=== PATIENT | male | born 1955 | race Hispanic/Latino ===

== ENCOUNTER 2020-09-20 04:55 | Inpatient (IN) | payer BC ==
[2020-09-20 05:33] LABS: #Basophils 0.1 thou/uL (0.0-0.2); #Lymphocytes 1.6 thou/uL (1.20-3.40); #Monocytes 0.5 thou/uL (0.11-0.59); #Neutrophils 5.9 thou/uL (1.40-6.50); %Basophils 0.8 % (0.0-1.0); %Eosinophils 0.6 % (0.0-10.0); %Lymphocytes 19.7 % (21.0-51.0); %Monocytes 5.8 % (0.0-10.0); %Neutrophils 73.2 % (42.0-75.0); Hemoglobin 11.2 g/dL (14.0-18.0); Mean Corpuscular HGB CONC 32.3 g/dL (32.0-36.0); Mean Corpuscular Hemoglobin 28.8 pg (27.0-31.0); Mean Platelet Volume 8.6 fL (7.4-10.4); Platelet Count 247 thou/uL (130-400); RBC Distribution Width 13.9 % (11.5-14.5); Red Blood Cell (RBC) Count 3.88 mill/uL (4.70-6.10); White Blood Cell (WBC) Count 8.1 thou/uL (4.8-10.8)
[2020-09-20 05:55] LABS: ALT (SGPT) 50 U/L (8-55); AST (SGOT) 32 U/L (5-34); Albumin 4.1 g/dL (3.4-4.8); Alkaline Phosphatase 73 U/L (40-110); Anion Gap 14 mmol/L (10-20); BUN (Urea Nitrogen) 22 mg/dL (8.4-25.7); Bilirubin, Total 0.9 mg/dL (0.2-1.2); Calc. Creatinine Clearance 0 mL/min (70-130); Calcium 9.1 mg/dL (7.8-10.44); Carbon Dioxide 24 mmol/L (23-31); Chloride 107 mmol/L (98-107); Globulin 2.9 g/dL (2.4-3.5); Glucose 191 mg/dL (80-115); Potassium 4.3 mmol/L (3.5-5.1); Sodium 141 mmol/L (136-145)
[2020-09-20 06:21] LABS: CKMB 7.1 ng/mL (0-6.6)
[2020-09-20] MEDS ORDERED: Aspirin 325 MG TAB ONE (06:25)
[2020-09-20] MEDS ORDERED: Furosemide 40 MG/4 ML VIAL ONE (06:36)
--- NOTE | 2020-09-20 08:18 | RAD ---
SINGLE VIEW CHEST: Date: 09/20/2020 COMPARISON: None. HISTORY: Dry cough and shortness of breath for 2 week. FINDINGS: Single view of the chest shows an enlarged cardiomediastinal silhouette. Bilateral perihilar fullness is seen. Increased interstitial lung markings are present. There are questionable superimposed air s pace opacities in the left hilar region. No pleural effusion is seen. Degenerative changes are seen i n the spine. IMPRESSION: 1. Possible left perihilar infiltrate. 2. Cardiomegaly and pulmonary vascular congestion. POS: TIFFANY
--- NOTE | 2020-09-20 09:37 | PDOC.HHP ---
Hospitalist HPI - History of Present Illness History of Present Illness: ADMISSION DATE: 09/20/2020 TIME OF ASSESSMENT: 08 50 PRIMARY CARE PHYSICIAN: Chon Sahu CHIEF COMPLAINT: Shortness of breath HPI: Patient is a 65-year-old male past medical history significant for diabetes mellitus type 2. He presented to the ER today for increasing shortness of breath. He states that 2 weeks ago, around , he began to feel short of breath. He went to his physician the Friday after and was diagnosed with bronchitis. The following Friday which was 2 days ago he returned to his physician and was given an inhaler, Tessalon Perles, an antibiotic, and an injection which he does not know if it was an antibiotic or steroid. He states he has been compliant with his medications. He also states he has been getting more tired as this goes on and is having to prop himself up at night to sleep or sleep in his recliner to breathe better. Patient also endorses ankle swelling for the past 2 days and a dry cough. He denies chest pain, fevers, contact with sick persons, palpitations. ED COURSE: Vital Signs: Blood pressure 124/82, pulse 91, respiratory 22, temp 98.0 oral, 96% on room air Today in the ER the patient had EKG, chest x-ray, and lab work completed. He was administered lasix 40 mg IV and Aspirin 325 mg PO. PAST MEDICAL HISTORY: DM II PAST SURGICAL HISTORY: tonsillectomy, rotator cuff surgery bilaterally SOCIAL HISTORY: Patient lives at home with his . He denies alcohol, drug, or tobacco use. FAMILY HISTORY: Grandmother had history of diabetes. ALLERGIES: No known drug allergies CURRENT MEDICATIONS: Metformin and glyburide Hospitalist ROS - Review of Systems ENT: reports: other (congestion in throat) Cardiovascular: reports: orthopnea, edema All other systems reviewed; all pertinent +/- noted in HPI/Subj - Exam General Appearance: NAD, awake alert Eye: PERRL ENT: normocephalic atraumatic Heart: RRR, no murmur, no gallops, no rubs, normal peripheral pulses Respiratory: no ronchi, rales (soft in bases) Gastrointestinal: soft, non-tender, non-distended, normal bowel sounds Extremities: 1+ LE edema Musculoskeletal: normal tone, normal strength, no muscle wasting Psychiatric: normal affect, normal behavior, A&O x 3 Hospitalist Results - Labs Result Diagrams: 09/20/20 05:15 09/20/20 05:15 Lab results: WBC 8.1 thou/uL (4.8-10.8) 09/20/20 05:15 Hgb 11.2 g/dL (14.0-18.0) L 09/20/20 05:15 Hct 34.6 % (42.0-52.0) L 09/20/20 05:15 MCV 89.0 fL (78.0-98.0) 09/20/20 05:15 Plt Count 247 thou/uL (130-400) 09/20/20 05:15 Neutrophils % 73.2 % (42.0-75.0) 09/20/20 05:15 Sodium 141 mmol/L (136-145) 09/20/20 05:15 Potassium 4.3 mmol/L (3.5-5.1) 09/20/20 05:15 Chloride 107 mmol/L (98-107) 09/20/20 05:15 Carbon Dioxide 24 mmol/L (23-31) 09/20/20 05:15 BUN 22 mg/dL (8.4-25.7) 09/20/20 05:15 Creatinine 0.89 mg/dL (0.7-1.3) 09/20/20 05:15 Glucose 191 mg/dL (80-115) H 09/20/20 05:15 Calcium 9.1 mg/dL (7.8-10.44) 09/20/20 05:15 Total Bilirubin 0.9 mg/dL (0.2-1.2) 09/20/20 05:15 AST 32 U/L (5-34) 09/20/20 05:15 ALT 50 U/L (8-55) 09/20/20 05:15 Alkaline Phosphatase 73 U/L (40-110) 09/20/20 05:15 CK-MB (CK-2) 7.1 ng/mL (0-6.6) H* 09/20/20 05:15 Troponin I 0.055 ng/mL (< 0.028) H 09/20/20 05:15 B-Natriuretic Peptide 2196.6 pg/mL (0-100) H 09/20/20 05:15 Serum Total Protein 7.0 g/dL (5.8-8.1) 09/20/20 05:15 Albumin 4.1 g/dL (3.4-4.8) 09/20/20 05:15 - EKG Interpretation EKG: Sinus rhythm, LVH 98 bpm - Radiology Interpretation Chest x-ray Status: image reviewed by me, report reviewed by me Additional Comment: FINDINGS: Single view of the chest shows an enlarged cardiomediastinal silhouette. Bilateral perihilar fullnessis seen. Increased interstitial lung markings are present. There are questionable superimposed air space opacities in the left hilar region. No pleural effusion is seen. Degenerative changes are seen in the spine. IMPRESSION: 1. Possible left perihilar infiltrate. 2. Cardiomegaly and pulmonary vascular congestion. Hospitalist H&P A/P - Plan Plan: New onset CHF exacerbation Pending cardiology consult Echo ordered Continue IV Lasixreceived first dose in the ER Strict I's and O's Start aspirinreceived first dose in ER Heart failure clinic referral prior to discharge TSH, mag check Elevated troponins Denies chest pain, possibly elevated due to demand from heart failure Continue to trend Monitor on telemetry Diabetes mellitus type 2 Monitor Accu-Cheks AC at bedtime Mild sliding scale insulin Restart home medications VTE prophylaxis in place with SCDs CODE STATUS: Full Surrogate decision-maker is his , Teresita
[2020-09-20] MEDS ORDERED: Dextrose 5% in Water 1,000 ML IV PRN (10:01)
[2020-09-20] MEDS ORDERED: Dextrose 50% Abboject 50 ML SYRINGE SLOW IVP PRN (10:01)
[2020-09-20 10:05] LABS: Troponin I 0.057 ng/mL (< 0.028)
[2020-09-20 12:17] LABS: Troponin I 0.052 ng/mL (< 0.028)
[2020-09-20] MEDS: Furosemide 20 MG/2 ML VIAL SLOW IVP SCH (16:00)
[2020-09-20] MEDS ORDERED: Furosemide 20 MG/2 ML VIAL SLOW IVP SCH (20:00)
[2020-09-20] MEDS ORDERED: Potassium Chloride 20 MEQ TAB PO SCH (20:00)
--- NOTE | 2020-09-21 00:04 | CON ---
DATE OF CONSULTATION: 09/20/2020 REASON FOR CONSULTATION: Congestive heart failure. HISTORY OF PRESENT ILLNESS: Mr. Ratliff is a 65-year-old man, said he really has been breathing well since about , but he had noticed some wheezing. He received some inhaled bronchodilators, did not seem to help much. His symptoms have gradually worsened. He also noted some swelling of his lower extremities. He really has been very short of breath the last 2 days. Finally came to the emergency room after being urged to do so by his family member. Eventually he came to the hospital, found to be in florid pulmonary edema. He never had any chest pain or pressure. PAST MEDICAL HISTORY: He has history of diabetes for over 20 years, he thinks maybe closer to 30. Smoking, he quit about 8 years ago. MEDICATIONS: At home; 1. Metformin. 2. Meloxicam. 3. Jardiance. 4. Glipizide. ALLERGIES: NONE KNOWN. SOCIAL HISTORY: As mentioned, quit smoking 8 years ago. He has a supportive family. Lives at home. REVIEW OF SYSTEMS: CONSTITUTIONAL: Positive for generalized weakness. VISION: No changes. HEARING: No changes. PULMONARY: Shortness of breath. GASTROINTESTINAL: No nausea, vomiting, or diarrhea. SKIN: No rashes. NEUROLOGIC: No unilateral weakness or numbness. PSYCHIATRIC: No unusual depression or anxiety. PHYSICAL EXAMINATION: GENERAL: This is a pleasant gentleman. He still has increased respiratory rate, is short of breath, is moving around the bed. VITAL SIGNS: Blood pressure 114/54, pulse in the 80s, it is regular. LUNGS: Bibasilar rales. CARDIAC: Normal S1, normal S2. I do not hear a murmur, rub, or gallop. ABDOMEN: Soft and nontender. EXTREMITIES: Warm, dry. No clubbing or cyanosis. There is moderate edema. PULSES: He has good femoral pulse on the right. Good popliteal pulse on the right. Diminished pulses in the foot on the right. Decreased femoral pulse on the left. Decreased popliteal pulse on the left. Decreased pedal pulses on the left. PERTINENT LABORATORIES: Potassium was 4.3. Troponin indeterminate at 0.052. BNP 2196. Chest x-ray is cardiomegaly with pulmonary vascular congestion and heart failure. EKG is normal sinus rhythm, tachycardiac for rest at a rate of 98. There is a left axis deviation, possible old inferior infarct. There is an incomplete right bundle-branch block. I suspect it maybe a posterior infarct, some nonspecific ST and T-wave changes. ASSESSMENT: 1. Congestive heart failure, probably systolic, acute on chronic. 2. Abnormal EKG with left anterior fascicular block and possible old inferior infarct. 3. Probable underlying coronary artery disease. 4. Long-standing diabetes. PLAN: 1. Continue diuresis. 2. Add spironolactone. 3. Probably add low-dose losartan tomorrow and if he tolerates that, may change to Entresto. 4. Ultimately will need cardiac catheterization. 5. Echocardiogram pending. Suspect he has severely depressed left ventricular function. Job ID: [id number]
[2020-09-21 04:57] LABS: #Basophils 0.1 thou/uL (0.0-0.2); #Eosinphils 0.1 thou/uL (0.0-0.7); #Lymphocytes 1.9 thou/uL (1.20-3.40); #Monocytes 0.7 thou/uL (0.11-0.59); #Neutrophils 4.9 thou/uL (1.40-6.50); %Eosinophils 1.6 % (0.0-10.0); %Lymphocytes 24.6 % (21.0-51.0); %Monocytes 8.6 % (0.0-10.0); %Neutrophils 64.2 % (42.0-75.0); Mean Corpuscular HGB CONC 32.3 g/dL (32.0-36.0); Mean Corpuscular Hemoglobin 28.8 pg (27.0-31.0); Mean Corpuscular Volume 89.1 fL (78.0-98.0); Mean Platelet Volume 8.3 fL (7.4-10.4); Platelet Count 245 thou/uL (130-400); RBC Distribution Width 13.8 % (11.5-14.5); Red Blood Cell (RBC) Count 3.83 mill/uL (4.70-6.10); White Blood Cell (WBC) Count 7.6 thou/uL (4.8-10.8)
[2020-09-21 05:28] LABS: Anion Gap 14 mmol/L (10-20); BUN (Urea Nitrogen) 18 mg/dL (8.4-25.7); Calc. Creatinine Clearance 107 mL/min (70-130); Calcium 8.8 mg/dL (7.8-10.44); Carbon Dioxide 26 mmol/L (23-31); Cardiac Risk 3.1 (Less than 4.5); Chloride 105 mmol/L (98-107); Cholesterol 131 mg/dl (< 200 Desired); Glucose 148 mg/dL (80-115); HDL Cholesterol 42 mg/dL (>60 Neg Risk); LDL Cholesterol, Calculated 65 mg/dL; Potassium 4.1 mmol/L (3.5-5.1); Sodium 141 mmol/L (136-145); Triglycerides 119 mg/dL (Less than 150)
[2020-09-21] MEDS: Furosemide 20 MG/2 ML VIAL SLOW IVP SCH ×2 (06:23→14:01)
[2020-09-21] MEDS: Spironolactone 25 MG TAB PO SCH (08:51)
[2020-09-21] MEDS: Aspirin Chewable 81 MG TAB PO SCH (08:52)
[2020-09-21] MEDS ORDERED: Ivabradine 5 MG TAB PO SCH (09:00)
--- NOTE | 2020-09-21 10:22 | PDOC.HOSPP ---
- Subjective Encounter Date: 09/21/20 Encounter Time: 09:10 Subjective: Patient seen this morning for follow-up on new onset CHF exacerbation. Patient states he is feeling much better today and able to lie down some and breathe well. Patient longer tachypneic as he was yesterday. States he is still having good output. Awaiting echo results currently. Cardiology still following with patient. Chart and medications reviewed at this time. - Objective Vital Signs & Weight: Vital Signs (12 hours) Temp Pulse Resp BP Pulse Ox 09/21/20 07:34 98.5 F 75 24 H 122/72 97 09/21/20 04:00 97.8 F 80 19 120/73 97 09/20/20 23:20 82 15 103/65 98 Weight Weight 167 lb 6.4 oz I&O: 09/20/20 09/21/20 09/22/20 06:59 06:59 06:59 Intake Total 320 Output Total 1500 Balance -1180 Result Diagrams: 09/21/20 04:27 09/21/20 04:27 Additional Labs: Accuchecks 09/21/20 09/20/20 09/20/20 05:41 20:57 16:58 POC Glucose 134 H 155 H 120 H 09/20/20 11:09 POC Glucose 86 EKG Reviewed by me: Yes Hospitalist ROS - Medication Medications: Active Medications Generic Name Dose Route Start Last Admin Trade Name Freq PRN Reason Stop Dose Admin Aspirin 81 mg 09/21/20 09:00 09/21/20 08:52 Aspirin Chewable 81 Mg Tab PO 81 mg DAILY KELLE Administration Furosemide 20 mg 09/20/20 14:00 09/21/20 06:23 Furosemide 20 Mg/2 Ml Vial SLOW IVP 20 mg 0600,1400 KELLE Administration Ivabradine 5 mg 09/21/20 09:00 09/21/20 09:55 Ivabradine 5 Mg Tab PO 5 mg BID KELLE Administration Spironolactone 25 mg 09/21/20 08:00 09/21/20 08:51 Spironolactone 25 Mg Tab PO 25 mg QAM-WM KELLE Administration - Exam General Appearance: NAD, awake alert ENT: normocephalic atraumatic Heart: RRR, no murmur, no gallops, no rubs Respiratory: CTAB, no wheezes, normal chest expansion, no tachypnea Gastrointestinal: soft, non-tender, non-distended, normal bowel sounds, no palpable masses Neurological: no focal deficits Hosp A/P - Plan New onset CHF exacerbation Echo completed this am- awaiting results Continue IV Lasixreceived extra dose last night Strict I's and O's Continue aspirin Heart failure clinic referral prior to discharge Elevated troponins Denies chest pain, possibly elevated due to demand from heart failure Continue to trend Monitor on telemetry Diabetes mellitus type 2 Monitor Accu-Cheks AC at bedtime Mild sliding scale insulin
[2020-09-21] MEDS ORDERED: FLU VACC QS2020-21(6MOS UP)/PF 60 MCG/0.5 ML SYRINGE IM ONE (10:45)
--- NOTE | 2020-09-21 13:21 | PRG ---
DATE OF SERVICE: 09/21/2020 SUBJECTIVE: Mr. Ratliff is breathing better. He is feeling better. He has had a good diuresis all of his urine was collected. He said he had a full urinal about 800 mL, it apparently did not get recorded, but he is feeling much better. OBJECTIVE: VITAL SIGNS: Blood pressure is 108/63, pulse is 80. LUNGS: Clear now. CARDIAC: Normal S1, normal S2. ABDOMEN: Soft, nontender. EXTREMITIES: There is no edema. ASSESSMENT: 1. Congestive heart failure, systolic, acute on chronic, improved. 2. Echocardiogram shows ejection fraction 10% to 15% and inferior akinesis, looks like severe coronary artery disease in all likelihood. PLAN: 1. Add low-dose losartan tonight. If he tolerates that, consideration for starting Entresto. 2. Probably change him to p.o. diuretics tomorrow. 3. Probably increase spironolactone to 25 mg twice a day tomorrow. 4. Ultimately, start low-dose carvedilol. The patient has severely depressed left ventricular function. Tentatively planned catheterization on Friday. Job ID: [id number]
[2020-09-21] MEDS ORDERED: Losartan 25 MG TAB PO SCH (18:00)
[2020-09-22 04:36] LABS: #Basophils 0.1 thou/uL (0.0-0.2); #Eosinphils 0.2 thou/uL (0.0-0.7); #Lymphocytes 1.6 thou/uL (1.20-3.40); #Monocytes 0.5 thou/uL (0.11-0.59); #Neutrophils 3.5 thou/uL (1.40-6.50); %Lymphocytes 27.8 % (21.0-51.0); %Neutrophils 59.3 % (42.0-75.0); Mean Corpuscular HGB CONC 32.3 g/dL (32.0-36.0); Mean Corpuscular Hemoglobin 28.5 pg (27.0-31.0); Mean Corpuscular Volume 88.4 fL (78.0-98.0); Mean Platelet Volume 8.3 fL (7.4-10.4); Platelet Count 247 thou/uL (130-400); RBC Distribution Width 13.9 % (11.5-14.5); Red Blood Cell (RBC) Count 3.87 mill/uL (4.70-6.10); White Blood Cell (WBC) Count 5.9 thou/uL (4.8-10.8)
[2020-09-22 04:51] LABS: Anion Gap 12 mmol/L (10-20); BUN (Urea Nitrogen) 17 mg/dL (8.4-25.7); Calc. Creatinine Clearance 105 mL/min (70-130); Calcium 8.6 mg/dL (7.8-10.44); Carbon Dioxide 27 mmol/L (23-31); Chloride 105 mmol/L (98-107); Glucose 141 mg/dL (80-115); Potassium 4.1 mmol/L (3.5-5.1); Sodium 140 mmol/L (136-145)
[2020-09-22] MEDS: Furosemide 20 MG/2 ML VIAL SLOW IVP SCH (06:23)
[2020-09-22] MEDS: Aspirin Chewable 81 MG TAB PO SCH (08:39)
[2020-09-22] MEDS: Spironolactone 25 MG TAB PO SCH (08:39)
[2020-09-22] MEDS ORDERED: Communication Order-Pharmacy FS SCH (10:15)
--- NOTE | 2020-09-22 10:25 | PRG ---
DATE OF SERVICE: 09/22/2020 SUBJECTIVE: Mr. Ratliff is doing much better. He has no complaints. OBJECTIVE: VITAL SIGNS: His blood pressure is 109/56, pulse 75, it is regular. LUNGS: Clear. CARDIAC: Normal S1 and normal S2. ABDOMEN: Soft, nontender. EXTREMITIES: No edema. ASSESSMENT: 1. Severely depressed left ventricular function, congestive heart failure, acute on chronic, clinically improved. 2. Diabetes. 3. Tolerated losartan yesterday. PLAN: 1. Continue spironolactone. 2. Reduce diuretic therapy. 3. Add Entresto. 4. Add low-dose carvedilol tomorrow. 5. Discussed cardiac catheterization. Discussed risks including stroke, heart attack, iodine allergy, loss of blood supply to leg or kidney, stent thrombosis, stent restenosis. Discussed that he is at higher risk due to severe left ventricular dysfunction. The patient and daughter are in the room. They understand and wish to proceed. Also, we ordered LifeVest in view of ejection fraction being severely depressed at 10% to 15%. Job ID: [id number]
[2020-09-22] MEDS: Furosemide 20 MG TAB PO SCH (14:06)
--- NOTE | 2020-09-22 17:18 | PDOC.HOSPP ---
- Subjective Encounter Date: 09/22/20 Encounter Time: 10:00 Subjective: Patient seen for follow-up for CHF exacerbation. Denies chest pain. Reports shortness of breath is better. - Objective Vital Signs & Weight: Vital Signs (12 hours) Temp Pulse Pulse Pulse Resp BP BP 09/22/20 15:45 98.1 F 73 17 09/22/20 12:15 98.4 F 82 16 09/22/20 10:16 77 81 101/68 113/71 09/22/20 08:45 09/22/20 08:34 98.6 F 75 16 BP BP Pulse Ox Pulse Ox Pulse Ox 09/22/20 15:45 102/66 93 L 09/22/20 12:15 101/60 95 09/22/20 10:16 95 93 L 09/22/20 08:45 96 09/22/20 08:34 109/56 L 96 Weight Weight 163 lb I&O: 09/21/20 09/22/20 09/23/20 06:59 06:59 06:59 Intake Total 642 Output Total 1999 Balance -1358 Result Diagrams: 09/22/20 03:56 09/22/20 03:56 Additional Labs: Accuchecks 09/22/20 09/22/20 09/22/20 16:43 10:53 06:05 POC Glucose 164 H 137 H 143 H 09/21/20 09/21/20 19:53 18:19 POC Glucose 225 H 112 H Labs and MAR reviewed by me EKG Reviewed by me: Yes (Telemetry shows normal sinus rhythm) Hospitalist ROS - Review of Systems Respiratory: reports: SOB with excertion. denies: cough, shortness of breath, pleuritic pain, wheezing Cardiovascular: denies: chest pain, palpitations, orthopnea, paroxysmal noc. dyspnea, edema, light headedness - Medication Medications: Active Medications Generic Name Dose Route Start Last Admin Trade Name Freq PRN Reason Stop Dose Admin Aspirin 81 mg 09/21/20 09:00 09/22/20 08:39 Aspirin Chewable 81 Mg Tab PO 81 mg DAILY KELLE Administration Furosemide 20 mg 09/22/20 14:00 09/22/20 14:06 Furosemide 20 Mg Tab PO 20 mg 0900,1400 KELLE Administration Spironolactone 25 mg 09/21/20 08:00 09/22/20 08:39 Spironolactone 25 Mg Tab PO 25 mg QAM-WM [facility] Administration - Exam General Appearance: awake alert Eye: anicteric sclera ENT: moist mucosa Neck: supple Heart: RRR Respiratory: CTAB Gastrointestinal: soft, non-tender Skin: no rashes Psychiatric: normal affect, normal behavior Hosp A/P - Plan -Assessment/plan Acute on chronic systolic congestive heart failure, NYHA class III Continue IV furosemide. Continue Coreg 3.125 mg twice daily. Continue Entresto 24/26 mg twice daily. Continue spironolactone 25 mg daily. Strict I's and O's Elevated troponins Continue aspirin. Patient denies any chest pain. Patient for cath in 2 days. Diabetes mellitus type 2 Continue Accu-Cheks and insulin sliding scale.
[2020-09-22] MEDS: HumaLOG 300 UNITS/3 ML VIAL SC PRN (18:19)
[2020-09-23] MEDS: Aspirin Chewable 81 MG TAB PO SCH (08:50)
[2020-09-23] MEDS: Spironolactone 25 MG TAB PO SCH (08:50)
[2020-09-23] MEDS: Furosemide 20 MG TAB PO SCH ×2 (08:50→13:32)
[2020-09-23] MEDS: HumaLOG 300 UNITS/3 ML VIAL SC PRN ×2 (12:16→21:39)
--- NOTE | 2020-09-23 12:37 | PDOC.CPN ---
- Subjective Date: 09/23/20 Time: 09:45 Interval history: No overnight events, patient doing well today, walking in hallway with therapy with no cardiac complaints, he states that he walked further than yesterday and also feels better. He denies any chest pain or shortness of breath today. His d ursula is at his bedside. - Review of Systems General: denies: fever/chills, weight/appetite/sleep changes, night sweats, fatigue Respiratory: denies: cough, congestion, shortness of breath, exercise intolerance Cardiovascular: denies: chest pain, palpitation, edema, paroxysmal nocturnal dyspnea, orthopnea Gastrointestinal: denies: nausea, vomiting, diarrhea, constipation, abd pain, GI bleeding Musculoskeletal: denies: pain, tenderness, stiffness, swelling, arthritis/arthralgias Neurological: denies: numbness, syncope, seizure, weakness - Objective Allergies/Adverse Reactions: Allergies Allergy/AdvReac Type Severity Reaction Status Date / Time No Known Allergies Allergy Unverified 09/20/20 08:23 Visit Medications: Current Medications Aspirin (Aspirin Chewable 81 Mg Tab) 81 mg PO DAILY [facility] Last Admin: 09/23/20 08:50 Dose: 81 mg Documented by: Carvedilol (Carvedilol 3.125 Mg Tab) 3.125 mg PO BID-[facility] Dextrose/Water (Dextrose 50% Abboject 50 Ml Syringe) 25 gm SLOW IVP PRN PRN PRN Reason: Hypoglycemia Furosemide (Furosemide 20 Mg Tab) 20 mg PO 0900,1400 [facility] Last Admin: 09/23/20 08:50 Dose: 20 mg Documented by: Glucagon (Glucagon 1 Mg/Ml Vial) 1 mg IM PRN PRN PRN Reason: Hypoglycemia Dextrose/Water (D5w) 1,000 mls @ 0 mls/hr IV .Q0M PRN PRN Reason: Hypoglycemia Sodium Chloride (Normal Saline 0.9%) 1,000 mls @ 100 mls/hr IV .Q10H [facility] Insulin Human Lispro (Humalog 300 Units/3 Ml Vial) 0 units SC .MILD SLIDING SCALE PRN PRN Reason: Mild Correctional Scale Last Admin: 09/23/20 12:16 Dose: 2 unit Documented by: Insulin Human Lispro (Humalog 300 Units/3 Ml Vial) 0 units SC .BEDTIME SLIDING SC PRN PRN Reason: Bedtime Correctional Scale Miscellaneous Information (Communication Order-Pharmacy ) 0 each FS ONE [facility] Stop: 09/25/20 21:00 Sacubitril/Valsartan (Sacubitril 24mg/Valsartan 26mg Tab) 1 tab PO BID [facility] Last Admin: 09/23/20 08:50 Dose: 1 tab Documented by: Sodium Chloride (Flush - Normal Saline 10 Ml Syringe) 10 ml IVF Q12HR [facility] Last Admin: 09/23/20 08:50 Dose: 10 ml Documented by: Sodium Chloride (Flush - Normal Saline 10 Ml Syringe) 10 ml IVF PRN PRN PRN Reason: Saline Flush Spironolactone (Spironolactone 25 Mg Tab) 25 mg PO QAM-WM [facility] Last Admin: 09/23/20 08:50 Dose: 25 mg Documented by: Vital Signs & Weight: Vital Signs Temp Pulse Resp BP BP Pulse Ox 09/23/20 11:00 96.4 F L 94 18 100/67 95 09/23/20 09:00 98 09/23/20 08:50 97.9 F 84 16 118/72 98 09/23/20 04:00 97.7 F 82 18 122/79 92 L Weight 156 lb 4.8 oz - Quality Measures Condition: Heart Failure CV meds: Beta Devonte: Yes, CARLOS/ARB: Yes, ASA: Yes - Physical Exam General: alert & oriented x3, appears well, no apparent distress HEENT: mucus membranes moist Neck: supple neck, midline trachea, no JVD/HJR, no masses, no bruit Cardiac: regular rate and rhythm, no murmur Lungs: clear to auscultation, normal breath sounds, no wheeze, rales, rhonchi Neuro: cranial nerve 2-12 intact, grossly intact, motor function intact Abdomen: active bowel sounds, soft, non-tender Extremities: no cyanosis, no clubbing, no edema Skin: clear Musculoskeletal: normal range of motion, no pain, no fluid collection - Labs Result Diagrams: 09/22/20 03:56 09/22/20 03:56 Troponin/CKMB CK-MB (CK-2) 7.1 ng/mL (0-6.6) H* 09/20/20 05:15 Troponin I 0.052 ng/mL (< 0.028) H 09/20/20 11:33 - EKG Interpretation EKG: sinus rhythm - Assessment/Plan Assessment/Plan: Acute on chronic congestive heart failure: EF showed 10-15%, inferior akineses, moderate-severe mitral regurgitation, mild tricuspid regurgitation. Life vest ordered, plan for [facility] on Friday with Dr. Schulz. Patient diuresed 1350 mL yesterday, continue with Lasix and Spironolactone. Continue current dose of Entresto. No edema today. Pt. seen and eval. by me. I agree with the a/p by the [employer]. We have discussed the pt. and plan. óscar
[2020-09-23] MEDS: Carvedilol 3.125 MG TAB PO SCH (16:42)
--- NOTE | 2020-09-23 18:19 | PDOC.HOSPP ---
- Subjective Encounter Date: 09/23/20 Encounter Time: 18:18 Subjective: Patient seen for follow-up regarding CHF exacerbation. Reports shortness of breath is better. Reports tongue erythema but no itching. Reports erythema of lower back but no itching. - Objective Vital Signs & Weight: Vital Signs (12 hours) Temp Pulse Pulse Pulse Resp BP BP 09/23/20 12:47 88 92 112/70 112/72 09/23/20 11:00 96.4 F L 94 18 09/23/20 09:00 09/23/20 08:50 97.9 F 84 16 BP BP Pulse Ox Pulse Ox Pulse Ox 09/23/20 12:47 96 94 L 09/23/20 11:00 100/67 95 09/23/20 09:00 98 09/23/20 08:50 118/72 98 Weight Weight 156 lb 4.8 oz I&O: 09/22/20 09/23/20 09/24/20 06:59 06:59 06:59 Intake Total 642 1300 Output Total 1999 Balance -1358 1300 Result Diagrams: 09/22/20 03:56 09/22/20 03:56 Additional Labs: Accuchecks 09/23/20 09/23/20 09/23/20 16:03 11:33 05:48 POC Glucose 134 H 190 H 116 H 09/22/20 19:54 POC Glucose 193 H I reviewed patient's labs and MAR EKG Reviewed by me: Yes (Normal sinus rhythm on telemetry) Hospitalist ROS - Review of Systems ENT: reports: other (Tongue erythema) Cardiovascular: denies: chest pain, palpitations, orthopnea, paroxysmal noc. dyspnea, edema, light headedness Gastrointestinal: denies: nausea, vomiting, abdominal pain, diarrhea, constipation, melena, hematochezia Skin: reports: rash - Medication Medications: Active Medications Generic Name Dose Route Start Last Admin Trade Name Freq PRN Reason Stop Dose Admin Aspirin 81 mg 09/21/20 09:00 09/23/20 08:50 Aspirin Chewable 81 Mg Tab PO 81 mg DAILY KELLE Administration Carvedilol 3.125 mg 09/23/20 17:00 09/23/20 16:42 Carvedilol 3.125 Mg Tab PO 3.125 mg BID-WM KELLE Administration Furosemide 20 mg 09/22/20 14:00 09/23/20 13:32 Furosemide 20 Mg Tab PO 20 mg 0900,1400 KELLE Administration Insulin Human Lispro 0 units 09/20/20 10:01 09/23/20 12:16 Humalog 300 Units/3 Ml Vial SC 2 unit .MILD SLIDING SCALE PRN Administration Mild Correctional Scale Sacubitril/Valsartan 1 tab 09/22/20 21:00 09/23/20 08:50 Sacubitril 24mg/Valsartan 26mg Tab PO 1 tab BID KELLE Administration Sodium Chloride 10 ml 09/22/20 21:00 09/23/20 08:50 Flush - Normal Saline 10 Ml Syringe IVF 10 ml Q12HR KELLE Administration Spironolactone 25 mg 09/21/20 08:00 09/23/20 08:50 Spironolactone 25 Mg Tab PO 25 mg QAM-WM KELLE Administration - Exam General Appearance: awake alert Eye: anicteric sclera ENT: moist mucosa Neck: supple Heart: RRR Respiratory: CTAB Gastrointestinal: soft, non-tender Skin - other findings: Mild erythema over the lower back, nontender Psychiatric: normal affect Hosp A/P - Plan -Assessment/plan Acute on chronic systolic congestive heart failure, NYHA class III Patient is improving with e IV furosemide. Patient is currently on Coreg 3.125 mg twice daily. Patient is currently on Entresto 24/26 mg twice daily. And is currently on spironolactone 25 mg daily. Strict I's and O's Elevated troponins Continue aspirin. Patient denies any chest pain. Patient for cath in 2 days for cardiomyopathy. Diabetes mellitus type 2 Continue Accu-Cheks and insulin sliding scale. Patient is not hypoxic, no airway compromise. Lungs appear clear. If patient develops itching or worsens, can trial steroids and H2 blockers. It is unclear what caused the erythema of the lower back and erythema of the tongue. Tongue is not swollen.
[2020-09-24] MEDS: Spironolactone 25 MG TAB PO SCH (08:05)
[2020-09-24] MEDS: Aspirin Chewable 81 MG TAB PO SCH (08:05)
[2020-09-24] MEDS: Furosemide 20 MG TAB PO SCH ×2 (08:05→13:09)
[2020-09-24] MEDS: Carvedilol 3.125 MG TAB PO SCH ×2 (08:09→18:23)
[2020-09-24] MEDS: HumaLOG 300 UNITS/3 ML VIAL SC PRN (11:30)
--- NOTE | 2020-09-24 16:24 | PDOC.CPN ---
- Subjective Date: 09/24/20 Time: 11:00 Interval history: Patient had 7 beats of NSVT this a.m around 4:30, he states he got up to use the bathroom at that time, denies any chest pain or shortness of breath when episode occurred. States that he is feeling good today, has already walked in the [place] way this morning with no cardiac complaints. - Review of Systems General: denies: fever/chills, weight/appetite/sleep changes, night sweats, fatigue Respiratory: denies: cough, congestion, shortness of breath, exercise intolerance Cardiovascular: denies: chest pain, palpitation, edema, paroxysmal nocturnal dyspnea, orthopnea Gastrointestinal: denies: nausea, vomiting, diarrhea, constipation, abd pain, GI bleeding Musculoskeletal: denies: pain, tenderness, stiffness, swelling, arthritis/arthralgias Neurological: denies: numbness, syncope, seizure, weakness - Objective Allergies/Adverse Reactions: Allergies Allergy/AdvReac Type Severity Reaction Status Date / Time No Known Allergies Allergy Unverified 09/20/20 08:23 Visit Medications: Current Medications Aspirin (Aspirin Chewable 81 Mg Tab) 81 mg PO DAILY [facility] Last Admin: 09/24/20 08:05 Dose: 81 mg Documented by: Carvedilol (Carvedilol 3.125 Mg Tab) 3.125 mg PO BID-[facility] Last Admin: 09/24/20 08:09 Dose: Not Given Documented by: Dextrose/Water (Dextrose 50% Abboject 50 Ml Syringe) 25 gm SLOW IVP PRN PRN PRN Reason: Hypoglycemia Furosemide (Furosemide 20 Mg Tab) 20 mg PO 0900,1400 [facility] Last Admin: 09/24/20 13:09 Dose: 20 mg Documented by: Glucagon (Glucagon 1 Mg/Ml Vial) 1 mg IM PRN PRN PRN Reason: Hypoglycemia Dextrose/Water (D5w) 1,000 mls @ 0 mls/hr IV .Q0M PRN PRN Reason: Hypoglycemia Sodium Chloride (Normal Saline 0.9%) 1,000 mls @ 100 mls/hr IV .Q10H [facility] Insulin Human Lispro (Humalog 300 Units/3 Ml Vial) 0 units SC .MILD SLIDING SCALE PRN PRN Reason: Mild Correctional Scale Last Admin: 09/24/20 11:30 Dose: 2 unit Documented by: Insulin Human Lispro (Humalog 300 Units/3 Ml Vial) 0 units SC .BEDTIME SLIDING SC PRN PRN Reason: Bedtime Correctional Scale Last Admin: 09/23/20 21:39 Dose: 2 unit Documented by: Miscellaneous Information (Communication Order-Pharmacy ) 0 each FS ONE [facility] Stop: 09/25/20 21:00 Sacubitril/Valsartan (Sacubitril 24mg/Valsartan 26mg Tab) 1 tab PO BID [facility] Last Admin: 09/24/20 08:17 Dose: 1 tab Documented by: Sodium Chloride (Flush - Normal Saline 10 Ml Syringe) 10 ml IVF Q12HR [facility] Last Admin: 09/24/20 08:17 Dose: 10 ml Documented by: Sodium Chloride (Flush - Normal Saline 10 Ml Syringe) 10 ml IVF PRN PRN PRN Reason: Saline Flush Spironolactone (Spironolactone 25 Mg Tab) 25 mg PO QAM-WM [facility] Last Admin: 09/24/20 08:05 Dose: 25 mg Documented by: Vital Signs & Weight: Vital Signs Temp Pulse Pulse Pulse Resp BP BP 09/24/20 15:34 98.1 F 90 20 09/24/20 12:55 97.9 F 77 16 09/24/20 10:56 90 86 107/69 103/63 09/24/20 08:15 98.2 F 78 16 09/24/20 08:10 BP Pulse Ox Pulse Ox Pulse Ox 09/24/20 15:34 98/66 96 09/24/20 12:55 102/57 L 95 09/24/20 10:56 98 95 09/24/20 08:15 94/66 96 09/24/20 08:10 96 Weight 156 lb 6.4 oz - Quality Measures Condition: Heart Failure CV meds: Beta Devonte: Yes, CARLOS/ARB: Yes, ASA: Yes - Physical Exam General: alert & oriented x3 HEENT: mucus membranes moist Neck: no JVD/HJR Cardiac: regular rate and rhythm, no murmur, S1/S2 Lungs: clear to auscultation, normal breath sounds, no wheeze, rales, rhonchi Neuro: grossly intact, motor function intact, sensory function intact Abdomen: active bowel sounds, soft, non-tender Extremities: no cyanosis, no clubbing, no edema, 2+ Posterior Tibial, 2+ Dorsalis Pedus Skin: clear Musculoskeletal: normal range of motion - Labs Result Diagrams: 09/22/20 03:56 09/22/20 03:56 Troponin/CKMB CK-MB (CK-2) 7.1 ng/mL (0-6.6) H* 09/20/20 05:15 Troponin I 0.052 ng/mL (< 0.028) H 09/20/20 11:33 - EKG Interpretation EKG Method: Telemetry EKG: sinus rhythm - Assessment/Plan Assessment/Plan: Acute on chronic congestive heart failure: EF showed 10-15%, inferior akineses, moderate-severe mitral regurgitation, mild tricuspid regurgitation. Life vest ordered, plan for LHC on Friday with Dr. Schulz. Patient diuresed 465 mL today, continue with Lasix and Spironolactone. Continue current dose of Entresto. No edema today. Spoke with patient and family about pre and post heart catheterization and answered all questions by patient and family. His BP was low this morning, his morning dose of Coreg was held, will continue to monitor. Pt. seen and eval. by me. I agree with the A/P by the UTILIZATION ENGINEER. Chest clear. RRR. + murmur of MR. cantrell
--- NOTE | 2020-09-24 17:42 | PDOC.HOSPP ---
- Subjective Encounter Date: 09/24/20 Encounter Time: 11:00 Subjective: Patient seen for follow-up regarding acute exacerbation of congestive heart failure. He denies any new complaints. - Objective Vital Signs & Weight: Vital Signs (12 hours) Temp Pulse Pulse Pulse Resp BP BP 09/24/20 15:34 98.1 F 90 20 09/24/20 12:55 97.9 F 77 16 09/24/20 10:56 90 86 107/69 103/63 09/24/20 08:15 98.2 F 78 16 09/24/20 08:10 BP Pulse Ox Pulse Ox Pulse Ox 09/24/20 15:34 98/66 96 09/24/20 12:55 102/57 L 95 09/24/20 10:56 98 95 09/24/20 08:15 94/66 96 09/24/20 08:10 96 Weight Weight 156 lb 6.4 oz I&O: 09/23/20 09/24/20 09/25/20 06:59 06:59 06:59 Intake Total 1300 1560 Output Total 2024 Balance 1300 -465 Result Diagrams: 09/22/20 03:56 09/22/20 03:56 Additional Labs: Accuchecks 09/24/20 09/24/20 09/24/20 16:05 10:40 05:13 POC Glucose 159 H 190 H 145 H 09/23/20 19:38 POC Glucose 232 H Labs and MAR reviewed by me EKG Reviewed by me: Yes (Telemetry shows normal sinus rhythm) Hospitalist ROS - Review of Systems Respiratory: denies: cough, shortness of breath, SOB with excertion, pleuritic pain, wheezing Cardiovascular: denies: chest pain, palpitations, orthopnea, paroxysmal noc. dyspnea, edema, light headedness - Medication Medications: Active Medications Generic Name Dose Route Start Last Admin Trade Name Freq PRN Reason Stop Dose Admin Aspirin 81 mg 09/21/20 09:00 09/24/20 08:05 Aspirin Chewable 81 Mg Tab PO 81 mg DAILY [facility] Administration Carvedilol 3.125 mg 09/23/20 17:00 09/24/20 08:09 Carvedilol 3.125 Mg Tab PO Not Given BID-[facility] Furosemide 20 mg 09/22/20 14:00 09/24/20 13:09 Furosemide 20 Mg Tab PO 20 mg 0900,1400 [facility] Administration Insulin Human Lispro 0 units 09/20/20 10:01 09/24/20 11:30 Humalog 300 Units/3 Ml Vial SC 2 unit .MILD SLIDING SCALE PRN Administration Mild Correctional Scale Insulin Human Lispro 0 units 09/20/20 10:01 09/23/20 21:39 Humalog 300 Units/3 Ml Vial SC 2 unit .BEDTIME SLIDING SC PRN Administration Bedtime Correctional Scale Sacubitril/Valsartan 1 tab 09/22/20 21:00 09/24/20 08:17 Sacubitril 24mg/Valsartan 26mg Tab PO 1 tab BID [facility] Administration Sodium Chloride 10 ml 09/22/20 21:00 09/24/20 08:17 Flush - Normal Saline 10 Ml Syringe IVF 10 ml Q12HR [facility] Administration Spironolactone 25 mg 09/21/20 08:00 09/24/20 08:05 Spironolactone 25 Mg Tab PO 25 mg QAM-WM [facility] Administration - Exam General Appearance: awake alert Eye: anicteric sclera ENT: normocephalic atraumatic Neck: supple, no thyromegaly, no lymphadenopathy Heart: RRR Respiratory: CTAB Gastrointestinal: soft, non-tender Skin: no rashes Psychiatric: normal affect, normal behavior Hosp A/P - Plan -Assessment/plan Acute on chronic systolic congestive heart failure, NYHA class III Continue furosemide 20 mg IV twice daily. Continue Coreg 3.125 mg twice daily. Continue Entresto 24/26 mg twice daily. Continue spironolactone 25 mg daily. Strict I's and O's Elevated troponins Continue aspirin. Patient denies any chest paint Patient to have cardiac catheterization on September 25, 2020. Diabetes mellitus type 2 Continue Accu-Cheks and insulin sliding scale.
[2020-09-25] MEDS: Spironolactone 25 MG TAB PO SCH (05:41)
[2020-09-25] MEDS: Aspirin Chewable 81 MG TAB PO SCH (05:41)
[2020-09-25] MEDS ORDERED: Sodium Chloride 0.9% 1,000 ML IV SCH ×3 (06:00→15:45)
[2020-09-25 07:17] LABS: #Basophils 0.1 thou/uL (0.0-0.2); #Eosinphils 0.1 thou/uL (0.0-0.7); #Lymphocytes 1.6 thou/uL (1.20-3.40); #Monocytes 0.7 thou/uL (0.11-0.59); #Neutrophils 4.5 thou/uL (1.40-6.50); %Basophils 1.1 % (0.0-1.0); %Eosinophils 1.6 % (0.0-10.0); %Lymphocytes 22.6 % (21.0-51.0); %Monocytes 9.6 % (0.0-10.0); %Neutrophils 65.1 % (42.0-75.0); Hemoglobin 14.1 g/dL (14.0-18.0); Mean Corpuscular HGB CONC 32.3 g/dL (32.0-36.0); Mean Corpuscular Hemoglobin 28.2 pg (27.0-31.0); Mean Corpuscular Volume 87.4 fL (78.0-98.0); Mean Platelet Volume 7.9 fL (7.4-10.4); Platelet Count 292 thou/uL (130-400); RBC Distribution Width 13.8 % (11.5-14.5); Red Blood Cell (RBC) Count 4.99 mill/uL (4.70-6.10); White Blood Cell (WBC) Count 6.9 thou/uL (4.8-10.8)
[2020-09-25 07:38] LABS: Anion Gap 13 mmol/L (10-20); BUN (Urea Nitrogen) 16 mg/dL (8.4-25.7); Calc. Creatinine Clearance 94 mL/min (70-130); Carbon Dioxide 28 mmol/L (23-31); Chloride 102 mmol/L (98-107); Glucose 178 mg/dL (80-115); Potassium 4.5 mmol/L (3.5-5.1); Sodium 138 mmol/L (136-145)
[2020-09-25 07:49] LABS: SARS-CoV-2 MS2 Positive; SARS-CoV-2 N Gene Negative; SARS-CoV-2 S Gene Negative; SARS-CoV-2 by NAA Not Detected (NotDetected); SARS-CoV-2 orf1ab Negative
[2020-09-25] MEDS ORDERED: Iopamidol 370 76% 100 ML VIAL ONE (09:21)
[2020-09-25] MEDS ORDERED: Midazolam HCl 2 mg/2 ml Vial ONE (14:04)
[2020-09-25] MEDS ORDERED: Fentanyl 100 MCG/2 ML VIAL ONE (14:04)
[2020-09-25] MEDS ORDERED: Nitroglycerin 0.4 MG TAB (25 Tab Bottle) SL PRN (14:55)
[2020-09-25] MEDS ORDERED: Sodium Chloride 0.9% 200 ML IV PRN (14:55)
[2020-09-25] MEDS ORDERED: Acetaminophen/Codeine 30-300mg Tablet PO PRN (14:55)
[2020-09-25] MEDS: Carvedilol 3.125 MG TAB PO SCH (16:12)
--- NOTE | 2020-09-25 18:37 | PDOC.HOSPP ---
- Subjective Encounter Date: 09/25/20 Encounter Time: 11:00 Subjective: Patient seen for follow-up for heart failure exacerbation. Denies any complaints today. - Objective Vital Signs & Weight: Vital Signs (12 hours) Temp Pulse Resp BP BP Pulse Ox 09/25/20 15:11 98.1 F 84 16 102/61 95 09/25/20 11:06 98.2 F 84 16 98/66 97 09/25/20 07:35 98.1 F 84 16 104/68 98 Weight Weight 155 lb 11.2 oz I&O: 09/24/20 09/25/20 09/26/20 06:59 06:59 06:59 Intake Total 9340 640 0049 Output Total 2025 450 Balance -465 340 650 Result Diagrams: 09/25/20 07:11 09/25/20 07:11 Additional Labs: Accuchecks 09/25/20 09/25/20 09/25/20 16:04 11:01 05:36 POC Glucose 147 H 142 H 141 H 09/24/20 20:21 POC Glucose 143 H I reviewed patient's labs and MAR EKG Reviewed by me: Yes (Normal sinus rhythm on telemetry) Hospitalist ROS - Review of Systems Respiratory: denies: cough, shortness of breath, SOB with excertion, pleuritic pain, wheezing Cardiovascular: denies: chest pain, palpitations, orthopnea, paroxysmal noc. dyspnea, edema, light headedness Gastrointestinal: denies: nausea, vomiting, abdominal pain, diarrhea, constipation, melena, hematochezia - Medication Medications: Active Medications Generic Name Dose Route Start Last Admin Trade Name Lisa PRN Reason Stop Dose Admin Aspirin 81 mg 09/21/20 09:00 09/25/20 05:41 Aspirin Chewable 81 Mg Tab PO 81 mg DAILY [facility] Administration Carvedilol 3.125 mg 09/25/20 17:00 09/25/20 16:12 Carvedilol 3.125 Mg Tab PO Not Given BID- [facility] Insulin Human Lispro 0 units 09/20/20 10:01 09/24/20 11:30 Humalog 300 Units/3 Ml Vial SC 2 unit .MILD SLIDING SCALE PRN Administration Mild Correctional Scale Insulin Human Lispro 0 units 09/20/20 10:01 09/23/20 21:39 Humalog 300 Units/3 Ml Vial SC 2 unit .BEDTIME SLIDING SC PRN Administration Bedtime Correctional Scale Sodium Chloride 10 ml 09/22/20 21:00 09/25/20 05:42 Flush - Normal Saline 10 Ml Syringe IVF 10 ml Q12HR [facility] Administration Spironolactone 25 mg 09/21/20 08:00 09/25/20 05:41 Spironolactone 25 Mg Tab PO 25 mg QAM-WM [facility] Administration - Exam General Appearance: awake alert ENT: moist mucosa Neck: supple Heart: RRR Respiratory: CTAB Gastrointestinal: soft, non-tender Skin: no rashes Psychiatric: normal affect, normal behavior Hosp A/P - Plan -Assessment/plan Acute on chronic systolic congestive heart failure, NYHA class III Pt switch to furosemide 20 mg p.o. twice daily. Patient is on Coreg 3.125 mg twice daily. Continue Entresto 24/26 mg twice daily. Patient is on spironolactone 25 mg daily. Strict I's and O's Elevated troponins Continue aspirin. Patient denies any chest paint Patient to have cardiac catheterization.t Diabetes mellitus type 2 Continue Accu-Cheks and insulin sliding scale. Blood sugars are reasonably controlled.
--- NOTE | 2020-09-25 19:00 | CON ---
DATE OF CONSULTATION: HISTORY OF PRESENT ILLNESS: This is a pleasant 65-year-old gentleman, who works in the [employer] department at [employer]. Over the past three weeks, at least since , he has had progressive cough and dyspnea such that he can barely walk. He was sleeping in a recliner because he could not lie flat. He presented to the hospital with congestive heart failure with elevated BNP. Chest x-ray showing pulmonary edema. He has undergone diuresis. His echo showed an ejection fraction of 15% with moderate mitral regurgitation, and then, troponin was not significantly elevated. His BNP was about 2200 on admission and pending tomorrow repeat study. PAST MEDICAL HISTORY: Includes diabetes mellitus with relatively well-controlled hemoglobin A1c according to the . He has no history of hypertension or elevated cholesterol level. He did smoke some cigars occasionally, but has not smoked in about three weeks since he has become dyspneic. PAST SURGICAL HISTORY: Includes tonsillectomy and bilateral rotator cuff surgery. SOCIAL HISTORY: He is a nondrinker, nonsmoker. His is present during this interview, and two daughters were also on the phone during this process. HOME MEDICATIONS: Included, 1. Glipizide 10 mg b.i.d. 2. Jardiance 25 mg a day. 3. Metformin 1000 b.i.d. 4. Meloxicam. ALLERGIES: NO KNOWN ALLERGIES. PHYSICAL EXAMINATION: GENERAL: He is alert, cooperative gentleman. VITAL SIGNS: 5 feet 6 inches, 155 pounds. Current blood pressure is about 100 systolic and his heart rate is about 84, and his blood pressure has not been significantly elevated at all during this hospital stay. His heart rate has remained also relatively stable. His weight is decreased about 10 pounds during this hospital stay from 167 to about 155 with the bulk of this being within the first 24 to 48 hours. LUNGS: Clear to auscultation anteriorly. CARDIAC: I do not appreciate a murmur on cardiac exam. ABDOMEN: Soft and nontender with no masses. EXTREMITIES: He has no palpable pedal pulses, but he does have good popliteal pulses bilaterally. DIAGNOSTIC STUDIES: Cardiac catheterization shows about an 80% distal left main stenosis as well as disease in his mid right coronary artery of about 70% and then the mid PDA of about 70% to 80%. Potential targets include the LAD, OM, and PDA systems, and his EF is poor on ventriculography, but his LVEDP is surprisingly only 8. PLAN: Would be to perform multivessel bypass grafting this admission, and tentatively, we will shoot for later in the week. Job ID: [id number]
--- NOTE | 2020-09-26 07:55 | RAD ---
XR Chest 1 View History: Congestive heart failure Comparison: Radiograph September 20, 2020 Findings: Heart size mildly enlarged. Mild pulmonary venous congestion. Trace effusions. No pneumotho rax. No acute osseous abnormality. External defibrillator vest is worn. Impression: Slightly improved lung aeration with decreased pulmonary edema relative to the September exam.
[2020-09-26] MEDS ORDERED: Furosemide 40 MG TAB PO SCH (09:00)
[2020-09-26] MEDS: Furosemide 20 MG TAB PO SCH ×2 (09:18→14:16)
[2020-09-26] MEDS: Spironolactone 25 MG TAB PO SCH (09:19)
[2020-09-26] MEDS: Carvedilol 3.125 MG TAB PO SCH ×2 (09:19→16:24)
[2020-09-26] MEDS: Aspirin Chewable 81 MG TAB PO SCH (09:20)
[2020-09-26] MEDS: HumaLOG 300 UNITS/3 ML VIAL SC PRN ×3 (10:33→22:25)
--- NOTE | 2020-09-26 13:10 | PRG ---
DATE OF SERVICE: 09/26/2020 SUBJECTIVE: Mr. Ratliff is feeling well. He is sitting up, breathing without difficulty. OBJECTIVE: VITAL SIGNS: Blood pressure is 93/59 most recently and pulse 80. LUNGS: Clear. CARDIAC: Normal S1 and normal S2. ABDOMEN: Soft and nontender. EXTREMITIES: No edema. LABORATORY DATA: Chest x-ray looks improved from admission. ASSESSMENT: 1. Severely depressed left ventricular function. 2. Severe left main stenosis with right coronary stenosis. PLAN: The patient will be scheduled for bypass surgery. He understands he is at increased risk due to the left ventricular dysfunction, but without an operation, his prognosis is grim. The family understands his situation and understand that regardless of therapy, there will be high risk of potential adverse events including not surviving; however, without an operation, his survival rate would be very poor. Job ID: [id number]
[2020-09-26] MEDS ORDERED: [UNRECOGNIZED DRUG - REMARK] FS SCH (13:56)
--- NOTE | 2020-09-26 19:45 | PDOC.HOSPP ---
- Subjective Encounter Date: 09/26/20 Encounter Time: 11:30 Subjective: Patient seen for follow-up regarding history of heart failure. He denies chest pain or shortness of breath. - Objective Vital Signs & Weight: Vital Signs (12 hours) Temp Pulse Resp BP BP Pulse Ox 09/26/20 15:44 98.4 F 92 18 125/74 98 09/26/20 13:57 86 104/71 09/26/20 11:03 98.2 F 81 16 93/59 L 98 09/26/20 07:55 98.4 F 85 16 104/66 96 Weight Weight 157 lb I&O: 09/25/20 09/26/20 09/27/20 06:59 06:59 06:59 Intake Total 340 1580 720 Output Total 450 625 Balance 340 1130 95 Result Diagrams: 09/25/20 07:11 09/25/20 07:11 Additional Labs: Accuchecks 09/26/20 09/26/20 09/26/20 16:23 10:23 05:31 POC Glucose 193 H 230 H 141 H 09/25/20 20:20 POC Glucose 206 H Labs and MAR reviewed by me EKG Reviewed by me: Yes (Telemetry shows normal sinus rhythm) Hospitalist ROS - Review of Systems Gastrointestinal: denies: nausea, vomiting, abdominal pain, diarrhea, co nstipation, melena, hematochezia Genitourinary: denies: dysuria, frequency, incontinence, hematuria, retention - Medication Medications: Active Medications Generic Name Dose Route Start Last Admin Trade Name Freq PRN Reason Stop Dose Admin Aspirin 81 mg 09/21/20 09:00 09/26/20 09:20 Aspirin Chewable 81 Mg Tab PO 09/27/20 08:45 81 mg DAILY [facility] Administration Carvedilol 3.125 mg 09/25/20 17:00 09/26/20 16:24 Carvedilol 3.125 Mg Tab PO 3.125 mg BID-WM [facility] Administration Furosemide 20 mg 09/26/20 09:00 09/26/20 14:16 Furosemide 20 Mg Tab PO 09/27/20 08:45 20 mg 0900,1400 [facility] Administration Insulin Human Lispro 0 units 09/20/20 10:01 09/26/20 16:25 Humalog 300 Units/3 Ml Vial SC 09/27/20 08:45 2 unit .MILD SLIDING SCALE PRN Administration Mild Correctional Scale Insulin Human Lispro 0 units 09/20/20 10:01 09/23/20 21:39 Humalog 300 Units/3 Ml Vial SC 09/27/20 08:45 2 unit .BEDTIME SLIDING SC PRN Administration Bedtime Correctional Scale Sacubitril/Valsartan 1 tab 09/25/20 21:00 09/26/20 09:18 Sacubitril 24mg/Valsartan 26mg Tab PO Not Given BID [facility] Sodium Chloride 10 ml 09/22/20 21:00 09/26/20 09:20 Flush - Normal Saline 10 Ml Syringe IVF 09/27/20 08:45 10 ml Q12HR [facility] Administration Spironolactone 25 mg 09/21/20 08:00 09/26/20 09:19 Spironolactone 25 Mg Tab PO 09/27/20 08:45 25 mg QAM-WM [facility] Administration - Exam General Appearance: awake alert Eye: anicteric sclera Neck: supple Heart: RRR Respiratory: CTAB Gastrointestinal: soft, non-tender Skin: no rashes Psychiatric: normal affect, normal behavior Hosp A/P - Plan -Assessment/plan Acute on chronic systolic congestive heart failure, NYHA class III Pt switch to furosemide 20 mg p.o. twice daily. Patient is on Coreg 3.125 mg twice daily. Continue Entresto 24/26 mg twice daily. Patient is on spironolactone 25 mg daily. Strict I's and O's Elevated troponin Multivessel coronary artery disease on cardiac catheterization. Patient is awaiting coronary artery bypass graft. Diabetes mellitus type 2 Continue Accu-Cheks and insulin sliding scale. Blood sugars are reasonably controlled.
[2020-09-27 04:07] LABS: #Basophils 0.1 thou/uL (0.0-0.2); #Eosinphils 0.2 thou/uL (0.0-0.7); #Lymphocytes 1.8 thou/uL (1.20-3.40); #Monocytes 0.9 thou/uL (0.11-0.59); #Neutrophils 4.4 thou/uL (1.40-6.50); %Eosinophils 2.8 % (0.0-10.0); %Monocytes 11.6 % (0.0-10.0); %Neutrophils 60.6 % (42.0-75.0); Hemoglobin 12.4 g/dL (14.0-18.0); Mean Corpuscular HGB CONC 32.4 g/dL (32.0-36.0); Mean Corpuscular Hemoglobin 28.1 pg (27.0-31.0); Mean Platelet Volume 8.1 fL (7.4-10.4); Platelet Count 259 thou/uL (130-400); RBC Distribution Width 13.3 % (11.5-14.5); Red Blood Cell (RBC) Count 4.41 mill/uL (4.70-6.10); White Blood Cell (WBC) Count 7.3 thou/uL (4.8-10.8)
[2020-09-27 04:30] LABS: Anion Gap 10 mmol/L (10-20); BUN (Urea Nitrogen) 14 mg/dL (8.4-25.7); Calc. Creatinine Clearance 106 mL/min (70-130); Calcium 8.6 mg/dL (7.8-10.44); Carbon Dioxide 27 mmol/L (23-31); Chloride 104 mmol/L (98-107); Glucose 112 mg/dL (80-115); Potassium 4.1 mmol/L (3.5-5.1); Sodium 137 mmol/L (136-145)
[2020-09-27] MEDS: Carvedilol 3.125 MG TAB PO SCH (05:14)
[2020-09-27] MEDS ORDERED: Midazolam HCl 5 mg/5 ml Vial ONE (07:20)
[2020-09-27] MEDS ORDERED: Fentanyl 250 MCG/5 ML VIAL ONE (07:20)
[2020-09-27] MEDS ORDERED: Dexmedetomidine 200 MCG/2 ML VIAL ONE (07:20)
[2020-09-27] MEDS ORDERED: Milrinone 10 MG/10 ML VIAL ONE (07:56)
[2020-09-27] MEDS ORDERED: Albumin 5% 500 ML ONE (08:39)
[2020-09-27] MEDS ORDERED: Heparin 10,000 UNITS/1 ML VIAL 30,000 UNITS in Sodium Chloride 0.9% 1,000 ML FS SCH (09:15)
[2020-09-27] MEDS ORDERED: Midazolam HCl 2 mg/2 ml Vial ONE (09:22)
[2020-09-27] MEDS ORDERED: Dexamethasone 20 MG/5 ML VIAL ONE (10:49)
[2020-09-27] MEDS ORDERED: Potassium Chloride 60 MEQ/30 ML VIAL ONE (10:49)
[2020-09-27] MEDS ORDERED: Magnesium Sulfate 1 GM/2 ML VIAL ONE (10:49)
[2020-09-27] MEDS ORDERED: Glycopyrrolate 0.2 MG/ML 5 ML SYRINGE ONE (10:49)
[2020-09-27] MEDS ORDERED: Cardioplegic Soln 1,000 ML BAG ONE (10:49)
[2020-09-27] MEDS ORDERED: Rocuronium Bromide 10 MG/ML (10ML VIAL) ONE (10:49)
[2020-09-27] MEDS ORDERED: Sodium Bicarb 50 MEQ/50 ML Abboject 8.4% SYRINGE ONE (10:49)
[2020-09-27] MEDS ORDERED: Papaverine 60 MG/2 ML VIAL ONE (10:49)
[2020-09-27] MEDS ORDERED: Heparin 30,000 units/30 ml VIAL ONE (10:49)
[2020-09-27] MEDS ORDERED: Lidocaine 2% PF 100 mg/5 ml Syringe ONE (10:49)
[2020-09-27] MEDS ORDERED: Protamine Sulfate 250 MG/25 ML VIAL ONE (10:49)
[2020-09-27] MEDS ORDERED: Thrombin 5000 UNITS/5 ML VIAL ONE (10:49)
[2020-09-27] MEDS ORDERED: Lidocaine 1% PF 5 ML VIAL ONE (10:49)
[2020-09-27] MEDS ORDERED: Vecuronium 10 MG VIAL ONE (10:49)
[2020-09-27] MEDS ORDERED: Mannitol 12.5 GM/50 ML ONE (10:49)
[2020-09-27] MEDS ORDERED: Aminocaproic Acid 5 GM/20 ML VIAL ONE (10:49)
[2020-09-27] MEDS ORDERED: Calcium Chloride 1 GM/10 ML Abboject SYRINGE ONE (10:49)
[2020-09-27] MEDS ORDERED: Heparin 5,000 UNITS/ML VIAL ONE (10:49)
[2020-09-27] MEDS ORDERED: Ondansetron PF 4 MG/2 ML Vial ONE (10:49)
[2020-09-27] MEDS ORDERED: Norepinephrine 4 MG/4 ML VIAL ONE (10:49)
[2020-09-27 11:25] LABS: Actual Bicarbonate (HCO3a) 22.5 mEq/L (22-28); Base Excess (BEa) -0.4 mEq/L (-2.0 to +3.0); CO2 Tension 31.3 mmHg (35.0-45.0); Calcium, Ionized (arterial) 1.12 mmol/L (1.12-1.30); Hemoglobin (Hb) 11.6 g/dL (14.0-18.0); O2 Tension (PaO2), arterial 374.4 mmHg (> 80.0); Potassium - ABG Lab 4.33 mmol/L (3.70-5.30); pH, Arterial 7.47 (7.35-7.45)
[2020-09-27] MEDS ORDERED: EPINEPHrine 4 MG in Dextrose 5% in Water 250 ML IVP SCH (12:15)
[2020-09-27] MEDS ORDERED: Insulin Regular 300 UNITS/3 ML VIAL ONE (12:34)
[2020-09-27] MEDS ORDERED: PHENYLEPHRINE-NS 100 MCG/ML 10 ML SYRINGE ONE (13:45)
[2020-09-27] MEDS ORDERED: Guaifenesin DM 100-10/5 ML UDCUP PO PRN (15:15)
[2020-09-27] MEDS ORDERED: Morphine 2 MG/ML VIAL SLOW IVP PRN (15:15)
[2020-09-27] MEDS ORDERED: Fentanyl 100 MCG/2 ML VIAL SLOW IVP PRN ×2 (15:15)
[2020-09-27] MEDS ORDERED: Norepinephrine 8 MG/0.9% NS 250 ML IVPB PRN (15:15)
[2020-09-27] MEDS ORDERED: Ondansetron PF 4 MG/2 ML Vial IVP PRN (15:15)
[2020-09-27] MEDS ORDERED: hydrALAZINE 20 MG/ML VIAL SLOW IVP PRN (15:15)
[2020-09-27] MEDS ORDERED: Post-Op Insulin Drip Protocol IVPB ONE (15:15)
[2020-09-27] MEDS ORDERED: Bisacodyl 5 MG TAB PO PRN (15:15)
[2020-09-27] MEDS ORDERED: Hetastarch 6% 500 ML 500 ML IVPB PRN (15:15)
[2020-09-27] MEDS ORDERED: Mag-Al 1200 mg/1200 mg/30 ML UDCUP PO PRN (15:15)
[2020-09-27] MEDS ORDERED: niCARdipine 25 MG in Sodium Chloride 0.9% 250 ML 240 ML IVPB PRN (15:15)
[2020-09-27] MEDS ORDERED: Acetaminophen 325 MG TAB PO PRN (15:15)
[2020-09-27] MEDS ORDERED: DOPamine 400 MG/D5W 250 ML 250 ML IVPB PRN (15:15)
[2020-09-27] MEDS ORDERED: Potassium Chloride 20 MEQ/100 ML PREMIX BAG IVPB PRN (15:15)
[2020-09-27] MEDS ORDERED: Bisacodyl 10 MG SUPP PR PRN (15:15)
[2020-09-27] MEDS ORDERED: Nitroglycerin 50 MG/250 ML BOT 250 ML IVPB PRN (15:15)
[2020-09-27] MEDS: Lactated Ringer's 1,000 ML IV SCH (15:30)
[2020-09-27] MEDS ORDERED: Dextrose 50% Abboject 50 ML SYRINGE SLOW IVP PRN (15:30)
[2020-09-27] MEDS ORDERED: Insulin Regular 300 UNITS/3 ML VIAL SC PRN (15:30)
[2020-09-27] MEDS ORDERED: Dextrose 5% in Water 1,000 ML IV PRN (15:30)
[2020-09-27] MEDS ORDERED: HUMULIN R 100 UNITS in Sodium Chloride 0.9% 100 ML IVPB SCH (15:30)
[2020-09-27 15:32] LABS: Actual Bicarbonate (HCO3a) 25.9 mEq/L (22-28); Base Excess (BEa) -0.7 mEq/L (-2.0 to +3.0); CO2 Tension 51.8 mmHg (35.0-45.0); Calcium, Ionized (arterial) 1.17 mmol/L (1.12-1.30); Carboxyhemoglobin (COHb) 0.8 gm% (0.0-3.0); Hemoglobin (Hb) 10.7 g/dL (14.0-18.0); O2 Tension (PaO2), arterial 77.1 mmHg (> 80.0); Potassium - ABG Lab 4.13 mmol/L (3.70-5.30); pH, Arterial 7.32 (7.35-7.45)
[2020-09-27 15:35] LABS: Puncture Site Arterial Line
--- NOTE | 2020-09-27 15:37 | RAD ---
EXAM: Single view of the chest HISTORY: Status post open heart surgery COMPARISON: 09/26/2020 FINDINGS: Single view of the chest shows an enlarged cardiomediastinal silhouette. The patient is st atus post sternotomy. There is an endotracheal tube in good position above the simon. A right subclavian central venous catheter is seen with its tip in the superior vena cava. No pneumothorax is appreciated. A mediastinal drain and right chest tube are seen. There is no evidence of consolidation, mass, or pleural effusion. IMPRESSION: Appropriate position of lines and tubes status post sternotomy.
[2020-09-27 15:54] LABS: #Basophils 0.1 thou/uL (0.0-0.2); #Eosinphils 0.1 thou/uL (0.0-0.7); #Lymphocytes 1.3 thou/uL (1.20-3.40); #Monocytes 0.7 thou/uL (0.11-0.59); #Neutrophils 10.2 thou/uL (1.40-6.50); %Basophils 0.4 % (0.0-1.0); %Eosinophils 0.8 % (0.0-10.0); %Lymphocytes 10.7 % (21.0-51.0); %Monocytes 5.6 % (0.0-10.0); %Neutrophils 82.5 % (42.0-75.0); Hemoglobin 10.7 g/dL (14.0-18.0); Mean Corpuscular HGB CONC 32.1 g/dL (32.0-36.0); Mean Corpuscular Hemoglobin 28.4 pg (27.0-31.0); Mean Corpuscular Volume 88.5 fL (78.0-98.0); Mean Platelet Volume 8.6 fL (7.4-10.4); Platelet Count 174 thou/uL (130-400); RBC Distribution Width 13.4 % (11.5-14.5); Red Blood Cell (RBC) Count 3.75 mill/uL (4.70-6.10); White Blood Cell (WBC) Count 12.3 thou/uL (4.8-10.8)
--- NOTE | 2020-09-27 15:57 | OP ---
DATE OF PROCEDURE: 09/27/2020 PREOPERATIVE DIAGNOSES: 1. Congestive heart failure. 2. Left main coronary and right coronary disease. PROCEDURE PERFORMED: Coronary artery bypass graft x4; left internal mammary artery to a high diagonal or ramus branch, saphenous vein good quality to an obtuse marginal, saphenous vein slightly smaller as a sequential graft to the distal right coronary artery and the distal posterior descending artery. CASING RUNNING MACHINE TENDER: Dr. Fink. TRANSFUSION: None. FINDINGS: The patient had a very large baggy heart with the appearance of chronic congestive heart failure findings. DESCRIPTION OF PROCEDURE: After adequate anesthesia had been obtained, the patient was prepped and draped and I initially did an endovascular vein harvest of the right greater saphenous vein. Ultrasonography showed both saphenous veins right and left to be rather small. After harvesting the right side, it was felt that this would not be adequate to graft both the OM and the right systems in a patient with a very large heart. Dr. Fink then came and harvested the left greater saphenous vein with an endovascular technique. Following harvesting of the right side, I performed a median sternotomy fairly widely, entering the right pleura. Following this, the left internal mammary artery was harvested. The patient was heparinized and the mammary divided distally and passed posterior to the thymus gland. The patient had a very deep chest, and the aorta and right atrium were cannulated, and cardiopulmonary bypass begun. The cross-clamp was applied and a liter of cold blood cardioplegia was given, following which the PDA was opened distally and end-to-side anastomosis completed and then the main right coronary artery opened and [id number] anastomosis completed with the same segment of vein. Following completion of this, the obtuse marginal was opened. The HE was then anastomosed to the ramus or high diagonal. It should be noted that a good time was spent searching for what was felt to be an LAD target; however, in retrospect, the vessel on the heart that was occluded and failed to visualize was actually probably the LAD system. Following completion of the mammary graft, the cross-clamp was removed and the partial occluding clamp placed and 2 proximal anastomoses performed on the aortic root. Following this, the patient was weaned from cardiopulmonary bypass after a loading dose of Primacor and some Levophed. Cannulas were removed and protamine given systemically and the aortic cannulation site secured with a 4-0 Prolene suture. Mediastinal and right pleural drains were placed. Following this, the sternum was reapproximated with #7 interrupted wire using vancomycin paste on the sternal edges, platelet-rich blood, and platelet-poor plasma. Subcutaneous tissue and skin were closed in layers. Job ID: [id number]
[2020-09-27 16:00] LABS: INR-International Normal Ratio 1.3; PTT 30.4 sec (22.9-36.1); Prothrombin Time 16.3 sec (12.0-14.7)
[2020-09-27 16:10] LABS: Anion Gap 12 mmol/L (10-20); BUN (Urea Nitrogen) 11 mg/dL (8.4-25.7); Calc. Creatinine Clearance 111 mL/min (70-130); Calcium 7.5 mg/dL (7.8-10.44); Carbon Dioxide 22 mmol/L (23-31); Chloride 111 mmol/L (98-107); Glucose 148 mg/dL (80-115); Potassium 4.2 mmol/L (3.5-5.1); Sodium 141 mmol/L (136-145)
[2020-09-27] MEDS: Spironolactone 25 MG TAB PO SCH (16:29)
[2020-09-27] MEDS: CEFAZOLIN 2 GM in Premix Bag 1 BAG IVPB SCH (17:51)
[2020-09-27] MEDS: Ketorolac Tromethamine 30 MG/ML VIAL IVP SCH (18:00)
[2020-09-27] MEDS ORDERED: CEFAZOLIN 2 GM in Premix Bag 1 BAG IVPB SCH (19:00)
--- NOTE | 2020-09-27 19:25 | PDOC.HOSPP ---
- Subjective Encounter Date: 09/27/20 Encounter Time: 06:30 Subjective: Patient seen for follow-up regarding CHF exacerbation. Denies any complaints. Feels well about the surgery. - Objective Vital Signs & Weight: Vital Signs (12 hours) Temp Pulse Resp BP BP BP Pulse Ox 09/27/20 18:00 15 09/27/20 16:00 12 09/27/20 15:45 96 09/27/20 15:36 72 118/50 L 09/27/20 15:20 97.7 F 09/27/20 08:00 96 F L 74 16 95/62 95/62 94 L Weight Weight 153 lb Most Recent Monitor Data Heart Rate from ECG 76 NIBP 100/66 NIBP BP-Mean 77 Respiration from ECG 20 SpO2 99 I&O: 09/26/20 09/27/20 09/28/20 06:59 06:59 06:59 Intake Total 1580 1080 870.7 Output Total 821 699 3569 Balance 1130 455 -449.3 Result Diagrams: 09/27/20 15:26 09/27/20 15:26 Additional Labs: Accuchecks 09/27/20 09/27/20 09/27/20 19:13 18:15 17:12 POC Glucose 154 H 125 H 84 09/27/20 09/27/20 09/27/20 15:26 14:53 14:16 POC Glucose 145 H 150 H 176 H 09/27/20 09/27/20 09/26/20 12:53 06:05 20:15 POC Glucose 160 H 150 H 259 H I reviewed patient's labs and MAR EKG Reviewed by me: Yes (Normal sinus rhythm on telemetry) Hospitalist ROS - Review of Systems Respiratory: denies: cough, shortness of breath, SOB with excertion, wheezing Cardiovascular: denies: chest pain, palpitations, orthopnea, paroxysmal noc. dyspnea, edema, light headedness - Medication Medications: Active Medications Generic Name Dose Route Start Last Admin Trade Name Freq PRN Reason Stop Dose Admin Albumin Human 25 gm 09/27/20 15:15 09/27/20 17:51 Albumin 5% 12.5 Gm/250 Ml Bot IVPB 09/28/20 15:16 25 gm Q6H PRN Administration To Maintain SBP > 90 mmHG Lactated Ringer's 1,000 mls @ 75 mls/hr 09/27/20 15:15 09/27/20 15:30 Lactated Ringer's IV 1,000 mls .[id number] [facility] Administration Cefazolin Sodium/Dextrose 2 gm 50 mls @ 100 mls/hr 09/27/20 18:00 09/27/20 17:51 / Device IVPB 09/28/20 10:29 Not Given 0200,1000,1800 [facility] Ketorolac Tromethamine 15 mg 09/27/20 18:00 09/27/20 18:00 Ketorolac Tromethamine 30 Mg/Ml Vial IVP 09/29/20 18:01 15 mg Q6HR [facility] Administration - Exam General Appearance: awake alert Eye: anicteric sclera Neck: supple Heart: RRR Respiratory: CTAB Gastrointestinal: non-tender, non-distended Skin: no rashes Psychiatric: normal affect Hosp A/P - Plan -Assessment/plan Acute on chronic systolic congestive heart failure, NYHA class III Patient is clinically improving, continue furosemide, Coreg, Entresto and spironolactone. Elevated troponin Multivessel coronary artery disease on cardiac catheterization. Patient to have coronary artery bypass graft surgery today. Diabetes mellitus type 2 Continue Accu-Cheks and insulin sliding scale.
[2020-09-27 19:28] LABS: Actual Bicarbonate (HCO3a) 22.1 mEq/L (22-28); Calcium, Ionized (arterial) 1.11 mmol/L (1.12-1.30); Carboxyhemoglobin (COHb) 0.6 gm% (0.0-3.0); Hemoglobin (Hb) 10.5 g/dL (14.0-18.0); O2 Tension (PaO2), arterial 99.4 mmHg (> 80.0); Potassium - ABG Lab 4.19 mmol/L (3.70-5.30); pH, Arterial 7.31 (7.35-7.45)
[2020-09-27 19:29] LABS: Puncture Site Arterial Line
[2020-09-27] MEDS ORDERED: Famotidine/PF 20 mg/2ml Vial SLOW IVP SCH (21:00)
[2020-09-27 21:14] LABS: Hemoglobin 10.2 g/dL (14.0-18.0)
[2020-09-27 21:26] LABS: Potassium 4.3 mmol/L (3.5-5.1)
[2020-09-28] MEDS: Ketorolac Tromethamine 30 MG/ML VIAL IVP SCH ×4 (00:09→17:48)
[2020-09-28] MEDS: HYDROcodone/Acetaminophen 5/325 mg Tablet PO PRN ×3 (00:10→08:52)
[2020-09-28] MEDS: Lactated Ringer's 1,000 ML IV SCH (01:36)
[2020-09-28] MEDS: CEFAZOLIN 2 GM in Premix Bag 1 BAG IVPB SCH ×2 (01:37→09:00)
[2020-09-28 05:11] LABS: #Lymphocytes 0.8 thou/uL (1.20-3.40); #Monocytes 0.5 thou/uL (0.11-0.59); #Neutrophils 5.8 thou/uL (1.40-6.50); %Basophils 0.3 % (0.0-1.0); %Eosinophils 0.1 % (0.0-10.0); %Lymphocytes 11.1 % (21.0-51.0); %Monocytes 7.2 % (0.0-10.0); %Neutrophils 81.4 % (42.0-75.0); Hemoglobin 8.8 g/dL (14.0-18.0); Mean Corpuscular HGB CONC 32.7 g/dL (32.0-36.0); Mean Corpuscular Hemoglobin 29.8 pg (27.0-31.0); Mean Platelet Volume 8.6 fL (7.4-10.4); Platelet Count 142 thou/uL (130-400); RBC Distribution Width 13.1 % (11.5-14.5); Red Blood Cell (RBC) Count 2.96 mill/uL (4.70-6.10); White Blood Cell (WBC) Count 7.2 thou/uL (4.8-10.8)
[2020-09-28 05:39] LABS: Anion Gap 13 mmol/L (10-20); BUN (Urea Nitrogen) 14 mg/dL (8.4-25.7); Calc. Creatinine Clearance 109 mL/min (70-130); Calcium 7.7 mg/dL (7.8-10.44); Carbon Dioxide 23 mmol/L (23-31); Chloride 109 mmol/L (98-107); Glucose 123 mg/dL (80-115); Potassium 4.2 mmol/L (3.5-5.1); Sodium 141 mmol/L (136-145)
[2020-09-28] MEDS ORDERED: DOBUTamine 500 mg/250 ml 250 ML IVPB SCH ×2 (07:15→17:58)
[2020-09-28] MEDS ORDERED: Nitroglycerin 0.4 MG TAB (25 Tab Bottle) SL PRN (07:22)
[2020-09-28] MEDS ORDERED: Bisacodyl 10 MG SUPP PR PRN (07:22)
[2020-09-28] MEDS ORDERED: Mineral Oil ENEMA PR PRN (07:22)
[2020-09-28] MEDS ORDERED: Mag-Al 1200 mg/1200 mg/30 ML UDCUP PO PRN (07:22)
--- NOTE | 2020-09-28 07:24 | PRG ---
DATE OF SERVICE: 09/28/2020 The patient is postoperative day #1 from multi-vessel coronary artery bypass grafting with severe left ventricular dysfunction. He is up in the chair, comfortable with no concerns. His chest x-ray shows some cardiomegaly with some increased interstitial pulmonary markings. His chest tube output is about 500 mL since the surgery. His hemoglobin is 8.8. His creatinine is normal if sugars have been okay off the insulin drip. He is on no pressors with heart rate of 90, blood pressure of 102. His lungs are clear to auscultation anteriorly and he has no leg edema, although does have an David wrap on. At this time, I think I will add some dobutamine at 5 mcg and perhaps decrease this is 3 mcg, but I think for the short term, he would benefit from some support given his EF. Job ID: [id number]
[2020-09-28] MEDS ORDERED: DOBUTamine 500 mg/250 ml 250 ML ONE (07:31)
--- NOTE | 2020-09-28 08:12 | RAD ---
EXAM: Single view of the chest HISTORY: Status post open heart surgery COMPARISON: 09/27/2020 FINDINGS: Single view of the chest shows an enlarged but stable cardiomediastinal silhouette. The en dotracheal tube is been removed. The other lines and tubes are unchanged in position. There is obscurity of the left hemidiaphragm which may represent a small left pleural effusion and/or adjacent atelectasis. No acute osseous abnormality. IMPRESSION: Left basilar atelectasis and/or adjacent pleural effusion
[2020-09-28 08:14] VITALS: BMI 24.7
[2020-09-28] MEDS ORDERED: Dextrose 5% in Water 1,000 ML IV PRN (08:15)
[2020-09-28] MEDS ORDERED: HUMULIN R 100 UNITS in Sodium Chloride 0.9% 100 ML IVPB SCH (08:15)
[2020-09-28] MEDS ORDERED: Dextrose 50% Abboject 50 ML SYRINGE SLOW IVP PRN (08:15)
[2020-09-28] MEDS: Aspirin 325 MG TAB PO SCH (08:38)
[2020-09-28] MEDS: Polyethylene Glycol 3350 17 GM Packet PO SCH (08:38)
[2020-09-28] MEDS: Famotidine 20 MG TAB PO SCH ×2 (08:38→20:14)
[2020-09-28] MEDS: Insulin Regular 300 UNITS/3 ML VIAL SC PRN ×4 (09:05→21:06)
--- NOTE | 2020-09-28 09:39 | PRG ---
DATE OF SERVICE: 09/28/2020 SUBJECTIVE: Mr. Ratliff is sitting up in a chair, doing very well. He is off Levophed. He is on low-dose dobutamine. He feels well. OBJECTIVE: VITAL SIGNS: Blood pressure is 110 systolic, pulse is in the 70 to 80 range. LUNGS: Clear. CARDIAC: Normal S1 and normal S2. ABDOMEN: Soft and nontender. EXTREMITIES: No edema. ASSESSMENT: 1. Severely depressed left ventricular function. 2. Status post successful high risk coronary bypass grafting. PLAN: 1. Low-dose dobutamine. 2. Aspirin. 3. Need to hold carvedilol and CARLOS inhibitors until blood pressure improves. We will follow with you. Job ID: [id number]
[2020-09-28] MEDS ORDERED: Digoxin 0.5 MG/2 ML AMP SLOW IVP SCH (09:45)
[2020-09-28] MEDS ORDERED: Amiodarone 200 MG TAB PO SCH (10:00)
--- NOTE | 2020-09-28 18:34 | PDOC.HOSPP ---
- Subjective Encounter Date: 09/28/20 Encounter Time: 08:30 Subjective: Seen for follow-up regarding CHF exacerbation. Reports soreness at surgical site but otherwise is asymptomatic. - Objective Vital Signs & Weight: Vital Signs (12 hours) Temp Pulse Pulse Pulse Resp BP BP 09/28/20 15:26 98.8 F 81 14 09/28/20 13:33 88 87 111/54 L 103/58 L 09/28/20 12:30 97.8 F 89 12 09/28/20 09:35 88 16 09/28/20 08:36 90 81 119/64 09/28/20 08:00 98.3 F 09/28/20 07:50 09/28/20 07:22 BP Pulse Ox Pulse Ox Pulse Ox 09/28/20 15:26 105/52 L 97 09/28/20 13:33 95 09/28/20 12:30 103/58 L 95 09/28/20 09:35 110/55 L 95 09/28/20 08:36 91 L 09/28/20 08:00 09/28/20 07:50 99 09/28/20 07:22 97 Weight Admit Weight 153 lb Weight 153 lb Most Recent Monitor Data Heart Rate from ECG 86 NIBP 119/64 NIBP BP-Mean 82 Respiration from ECG 19 SpO2 95 I&O: 09/27/20 09/28/20 09/29/20 06:59 06:59 06:59 Intake Total 1080 2997.3 300 Output Total 625 2120 170 Balance 455 877.3 130 Result Diagrams: 09/28/20 04:45 09/28/20 04:45 Additional Labs: Accuchecks 09/28/20 09/28/20 09/28/20 16:47 10:20 06:03 POC Glucose 254 H 175 H 115 H 09/28/20 09/28/20 09/28/20 04:47 04:12 03:07 POC Glucose 126 H 121 H 107 H 09/28/20 09/28/20 09/27/20 01:40 00:24 23:19 POC Glucose 104 H 117 H 128 H 09/27/20 09/27/20 09/27/20 22:07 21:02 20:13 POC Glucose 103 H 127 H 148 H 09/27/20 09/27/20 09/27/20 19:13 13:27 12:27 POC Glucose 154 H 158 H 184 H 09/27/20 11:18 POC Glucose 153 H Labs and MAR reviewed by me EKG Reviewed by me: Yes (Telemetry shows normal sinus rhythm) Hospitalist ROS - Review of Systems Cardiovascular: denies: chest pain, palpitations, orthopnea, paroxysmal noc. dyspnea, edema, light headedness Gastrointestinal: denies: nausea, vomiting, abdominal pain, diarrhea, constipation, melena, hematochezia Genitourinary: denies: dysuria, frequency, incontinence, hematuria, retention - Medication Medications: Active Medications Generic Name Dose Route Start Last Admin Trade Name Freq PRN Reason Stop Dose Admin Hydrocodone Bitart/Acetaminophen 1 tab 09/27/20 15:15 09/28/20 08:52 Hydrocodone/Acetaminophen 5/325 Mg Tablet PO 1 tab Q4H PRN Administration Moderate Pain (4-6) Hydrocodone Bitart/Acetaminophen 2 tab 09/27/20 15:15 09/28/20 04:48 Hydrocodone/Acetaminophen 5/325 Mg Tablet PO 2 tab Q4H PRN Administration Severe Pain (7-10) Aspirin 325 mg 09/28/20 09:00 09/28/20 08:38 Aspirin 325 Mg Tab PO 325 mg DAILY KELLE Administration Famotidine 20 mg 09/28/20 09:00 09/28/20 08:38 Famotidine 20 Mg Tab PO 20 mg BID KELLE Administration Fentanyl 50 mcg 09/27/20 15:15 09/27/20 19:26 Fentanyl 100 Mcg/2 Ml Vial SLOW IVP 09/29/20 14:54 50 mcg Q2H PRN Administration Severe Pain (7-10) Insulin Human Regular 0 units 09/28/20 08:15 09/28/20 17:49 Insulin Regular 300 Units/3 Ml Vial SC 8 unit Q4H PRN Administration POST OP SLIDING SCALE Protocol Ketorolac Tromethamine 15 mg 09/27/20 18:00 09/28/20 17:48 Ketorolac Tromethamine 30 Mg/Ml Vial IVP 09/29/20 18:01 15 mg Q6HR KELLE Administration Polyethylene Glycol 17 gm 09/28/20 09:00 09/28/20 08:38 Polyethylene Glycol 3350 17 Gm Packet PO 17 gm DAILY KELLE Administration - Exam General Appearance: awake alert Eye: anicteric sclera ENT: normocephalic atraumatic, moist mucosa Neck: supple, no thyromegaly Heart: RRR Respiratory: CTAB Gastrointestinal: soft, non-tender Skin: no rashes Psychiatric: normal affect, normal behavior Hosp A/P - Plan -Assessment/plan Acute on chronic systolic congestive heart failure, NYHA class III Continue furosemide, Coreg, Entresto and spironolactone. Patient is on a dobutamine drip. Elevated troponin Multivessel CAD on coronary angiography. Status post CABG x4 yesterday. Diabetes mellitus type 2 Continue Accu-Cheks and insulin sliding scale. Reasonable control of blood sugars.
[2020-09-28] MEDS: Amiodarone 200 MG TAB PO SCH (20:14)
[2020-09-29] MEDS: Ketorolac Tromethamine 30 MG/ML VIAL IVP SCH ×4 (00:58→17:29)
[2020-09-29 04:54] LABS: #Lymphocytes 1.7 thou/uL (1.20-3.40); #Monocytes 0.7 thou/uL (0.11-0.59); #Neutrophils 5.4 thou/uL (1.40-6.50); %Basophils 0.5 % (0.0-1.0); %Eosinophils 0.5 % (0.0-10.0); %Lymphocytes 21.2 % (21.0-51.0); %Monocytes 9.3 % (0.0-10.0); %Neutrophils 68.5 % (42.0-75.0); Hemoglobin 8.5 g/dL (14.0-18.0); Mean Corpuscular HGB CONC 32.1 g/dL (32.0-36.0); Mean Corpuscular Volume 90.4 fL (78.0-98.0); Mean Platelet Volume 8.8 fL (7.4-10.4); Platelet Count 142 thou/uL (130-400); RBC Distribution Width 13.3 % (11.5-14.5); Red Blood Cell (RBC) Count 2.94 mill/uL (4.70-6.10); White Blood Cell (WBC) Count 7.9 thou/uL (4.8-10.8)
[2020-09-29 05:15] LABS: Anion Gap 11 mmol/L (10-20); BUN (Urea Nitrogen) 17 mg/dL (8.4-25.7); Calc. Creatinine Clearance 96 mL/min (70-130); Carbon Dioxide 25 mmol/L (23-31); Chloride 107 mmol/L (98-107); Glucose 104 mg/dL (80-115); Magnesium 2.2 mg/dL (1.6-2.6); Potassium 4.1 mmol/L (3.5-5.1); Sodium 139 mmol/L (136-145)
[2020-09-29] MEDS: DOBUTamine 500 mg/250 ml 250 ML IVPB SCH (06:43)
--- NOTE | 2020-09-29 07:01 | PRG ---
DATE OF SERVICE: 09/29/2020 SUBJECTIVE: This is a 65-year-old gentleman who is postoperative day #2 from multivessel bypass grafting with severely impaired left ventricular systolic function. He had a good night with stable vital signs. Blood pressure hovering in the 100 to 110 range, which is typical for him. His heart rate is about 80 to 90. He was started on amiodarone in an attempt to minimize his risk of postoperative atrial fibrillation, and he has had no atrial fibrillation to this time. His weight is up about 10 to 12 pounds from preoperative levels. His chest tube put out about 120 mL of fluid overnight and these were removed this morning. His lungs are clear anteriorly. The plan is to keep him on the dobutamine, this being decreased from 5 to 3 mcg this morning. He is on Lasix twice a day and we will start him on spironolactone in regard to his congestive heart failure. Digoxin was briefly discussed yesterday, however, this was not begun due to some history of perioperative bradycardia. He overall looks quite good, but does need to have the diuresis over the next few days, and this is initially going to be attempted with oral diuretics. Job ID: [id number]
[2020-09-29] MEDS ORDERED: Spironolactone 25 MG TAB PO SCH (08:00)
[2020-09-29] MEDS: Spironolactone 25 MG TAB PO SCH (08:00)
[2020-09-29] MEDS ORDERED: Potassium Chloride 10 MEQ TAB PO SCH (08:00)
[2020-09-29] MEDS: Furosemide 40 MG TAB PO SCH ×2 (08:00→21:00)
[2020-09-29] MEDS: Famotidine 20 MG TAB PO SCH ×2 (08:00→20:59)
[2020-09-29] MEDS: Aspirin 325 MG TAB PO SCH (08:00)
[2020-09-29] MEDS: metFORMIN 500 MG TAB PO SCH ×2 (08:00→17:28)
--- NOTE | 2020-09-29 08:00 | PRG ---
DATE OF SERVICE: 09/29/2020 SUBJECTIVE: Mr. Ratliff is doing well. He is not having chest pain. He is not having tightness. He is tolerating the medicines well. OBJECTIVE: VITAL SIGNS: His blood pressure this morning was 113/60, pulse is 80, sinus. LUNGS: Clear. CARDIAC: Normal S1, normal S2. ABDOMEN: Soft, nontender. EXTREMITIES: There is no edema, but his weight is increased as per Dr. Saunders's note. ASSESSMENT: 1. Severely depressed left ventricular function. 2. Status post high-risk bypass surgery with excellent result. PLAN: 1. He is on amiodarone, to try to reduce risk of atrial fibrillation. He has a high risk of atrial fibrillation, would not tolerate it well with this degree of left ventricular dysfunction. 2. He is on low-dose dobutamine, down to 3 mcg/kg/minute. 3. Diuresis today. We will increase spironolactone and oral diuretics as well. The patient is doing remarkably well considering his left ventricular dysfunction. Job ID: [id number]
[2020-09-29] MEDS: Enoxaparin Sodium 30 MG/0.3 ML SYRINGE SC SCH (08:01)
[2020-09-29] MEDS: Polyethylene Glycol 3350 17 GM Packet PO SCH (08:01)
[2020-09-29] MEDS: Amiodarone 200 MG TAB PO SCH ×2 (08:01→20:59)
[2020-09-29] MEDS ORDERED: Furosemide 40 MG TAB PO SCH (09:00)
[2020-09-29] MEDS: Insulin Regular 300 UNITS/3 ML VIAL SC PRN ×2 (12:36→18:37)
--- NOTE | 2020-09-29 18:31 | PDOC.HOSPP ---
- Subjective Encounter Date: 09/29/20 Encounter Time: 10:00 Subjective: Patient seen for follow-up for CHF exacerbation. He denies any complaints today. - Objective Vital Signs & Weight: Vital Signs (12 hours) Temp Pulse Pulse Pulse Resp BP BP 09/29/20 15:47 98.6 F 84 16 09/29/20 14:48 82 76 110/56 L 92/53 L 09/29/20 12:31 99.3 F 80 16 09/29/20 09:50 90 86 119/62 118/59 L 09/29/20 08:05 09/29/20 07:57 98.7 F 80 16 BP BP Pulse Ox Pulse Ox Pulse Ox 09/29/20 15:47 110/56 L 97 09/29/20 14:48 97 98 09/29/20 12:31 110/61 99 09/29/20 09:50 09/29/20 08:05 97 09/29/20 07:57 135/71 97 Weight Admit Weight 153 lb Weight 168 lb 8 oz Most Recent Monitor Data Heart Rate from ECG 86 NIBP 119/64 NIBP BP-Mean 82 Respiration from ECG 19 SpO2 95 I&O: 09/28/20 09/29/20 09/30/20 06:59 06:59 06:59 Intake Total 2997.3 1219.6 1000 Output Total 2120 1160 700 Balance 877.3 59.6 300 Result Diagrams: 09/29/20 03:45 09/29/20 03:45 Additional Labs: Accuchecks 09/29/20 09/29/20 09/29/20 16:44 11:02 06:03 POC Glucose 185 H 212 H 117 H 09/28/20 09/28/20 23:39 20:32 POC Glucose 146 H 236 H I reviewed patient's labs and MAR EKG Reviewed by me: Yes (Normal sinus rhythm on telemetry) Hospitalist ROS - Review of Systems Cardiovascular: denies: chest pain, palpitations, orthopnea, paroxysmal noc. dyspnea, edema, light headedness Gastrointestinal: denies: nausea, vomiting, abdominal pain, diarrhea, constipat ion, melena, hematochezia - Medication Medications: Active Medications Generic Name Dose Route Start Last Admin Trade Name Freq PRN Reason Stop Dose Admin Hydrocodone Bitart/Acetaminophen 1 tab 09/27/20 15:15 09/28/20 08:52 Hydrocodone/Acetaminophen 5/325 Mg Tablet PO 1 tab Q4H PRN Administration Moderate Pain (4-6) Hydrocodone Bitart/Acetaminophen 2 tab 09/27/20 15:15 09/28/20 04:48 Hydrocodone/Acetaminophen 5/325 Mg Tablet PO 2 tab Q4H PRN Administration Severe Pain (7-10) Amiodarone HCl 400 mg 09/28/20 21:00 09/29/20 08:01 Amiodarone 200 Mg Tab PO 400 mg BID KELLE Administration Aspirin 325 mg 09/28/20 09:00 09/29/20 08:00 Aspirin 325 Mg Tab PO 325 mg DAILY KELLE Administration Enoxaparin Sodium 30 mg 09/29/20 09:00 09/29/20 08:01 Enoxaparin Sodium 30 Mg/0.3 Ml Syringe SC 30 mg 0900 KELLE Administration Famotidine 20 mg 09/28/20 09:00 09/29/20 08:00 Famotidine 20 Mg Tab PO 20 mg BID KELLE Administration Furosemide 40 mg 09/29/20 09:00 09/29/20 08:00 Furosemide 40 Mg Tab PO 40 mg BID KELLE Administration Dobutamine HCl/Dextrose 250 mls @ 6.246 mls/hr 09/29/20 05:44 09/29/20 06:43 Dobutamine 500 Mg/250 Ml IVPB 250 mls INF KELLE Administration Protocol 3 MCG/KG/MIN Insulin Human Regular 0 units 09/28/20 08:15 09/29/20 12:36 Insulin Regular 300 Units/3 Ml Vial SC 6 unit Q4H PRN Administration POST OP SLIDING SCALE Protocol Metformin HCl 1,000 mg 09/29/20 08:00 09/29/20 17:28 Metformin 500 Mg Tab PO 1,000 mg BID-WM KELLE Administration Polyethylene Glycol 17 gm 09/28/20 09:00 09/29/20 08:01 Polyethylene Glycol 3350 17 Gm Packet PO 17 gm DAILY KELLE Administration Sodium Chloride 10 ml 09/29/20 09:00 09/29/20 08:01 Flush - Normal Saline 10 Ml Syringe IVF 10 ml Q12HR KELLE Administration Spironolactone 25 mg 09/29/20 08:00 09/29/20 08:00 Spironolactone 25 Mg Tab PO 25 mg QAM-WM KELLE Administration - Exam General Appearance: awake alert Eye: anicteric sclera ENT: moist mucosa Neck: supple Heart: RRR, no gallops, no rubs Respiratory: CTAB Gastrointestinal: soft, non-tender Skin: no rashes Psychiatric: normal affect, normal behavior, oriented to person, oriented to place Hosp A/P - Plan -Assessment/plan Acute on chronic systolic congestive heart failure, NYHA class III Patient to get furosemide and metolazone today. Patient is on dobutamine drip. Elevated troponin Multivessel CAD on coronary angiography. Status post CABG x4 . LifeVest in place for ischemic cardiomyopathy. Diabetes mellitus type 2 Continue Accu-Cheks and insulin sliding scale.
[2020-09-29] MEDS: Bisacodyl 5 MG TAB PO PRN (21:07)
[2020-09-30 04:49] LABS: Anion Gap 9 mmol/L (10-20); BUN (Urea Nitrogen) 15 mg/dL (8.4-25.7); Calc. Creatinine Clearance 109 mL/min (70-130); Calcium 8.1 mg/dL (7.8-10.44); Carbon Dioxide 30 mmol/L (23-31); Chloride 104 mmol/L (98-107); Glucose 121 mg/dL (80-115); Potassium 3.9 mmol/L (3.5-5.1); Sodium 139 mmol/L (136-145)
[2020-09-30 04:58] LABS: #Eosinphils 0.2 thou/uL (0.0-0.7); #Lymphocytes 1.3 thou/uL (1.20-3.40); #Monocytes 0.9 thou/uL (0.11-0.59); #Neutrophils 5.8 thou/uL (1.40-6.50); %Basophils 0.5 % (0.0-1.0); %Eosinophils 2.5 % (0.0-10.0); %Lymphocytes 16.2 % (21.0-51.0); %Monocytes 10.4 % (0.0-10.0); %Neutrophils 70.3 % (42.0-75.0); Mean Corpuscular HGB CONC 32.5 g/dL (32.0-36.0); Mean Corpuscular Volume 89.3 fL (78.0-98.0); Mean Platelet Volume 9.2 fL (7.4-10.4); Platelet Count 166 thou/uL (130-400); RBC Distribution Width 13.2 % (11.5-14.5); White Blood Cell (WBC) Count 8.2 thou/uL (4.8-10.8)
[2020-09-30] MEDS: Amiodarone 200 MG TAB PO SCH ×2 (09:22→20:30)
[2020-09-30] MEDS: metFORMIN 500 MG TAB PO SCH ×2 (09:22→17:19)
[2020-09-30] MEDS: Famotidine 20 MG TAB PO SCH ×2 (09:23→20:28)
[2020-09-30] MEDS: Aspirin 325 MG TAB PO SCH (09:23)
[2020-09-30] MEDS: Spironolactone 25 MG TAB PO SCH (09:23)
[2020-09-30] MEDS: Furosemide 40 MG TAB PO SCH ×2 (09:23→20:30)
[2020-09-30] MEDS: Enoxaparin Sodium 30 MG/0.3 ML SYRINGE SC SCH (09:28)
[2020-09-30] MEDS ORDERED: Metolazone 5 MG TAB PO SCH (11:00)
--- NOTE | 2020-09-30 12:44 | PDOC.HOSPP ---
- Subjective Encounter Date: 09/30/20 Encounter Time: 09:30 Subjective: Patient seen for follow-up regarding CHF exacerbation. States she feels fine, no complaints today. - Objective Vital Signs & Weight: Vital Signs (12 hours) Temp Pulse Pulse Pulse Resp BP BP 09/30/20 09:11 98.4 F 81 16 09/30/20 08:47 93 84 118/62 116/59 L 09/30/20 04:00 98.7 F 80 16 BP BP Pulse Ox Pulse Ox Pulse Ox 09/30/20 09:11 118/62 98 09/30/20 08:47 98 96 09/30/20 04:00 119/67 99 Weight Admit Weight 153 lb Weight 165 lb 11.2 oz Most Recent Monitor Data Heart Rate from ECG 86 NIBP 119/64 NIBP BP-Mean 82 Respiration from ECG 19 SpO2 95 I&O: 09/29/20 09/30/20 10/01/20 06:59 06:59 06:59 Intake Total 1219.6 1122 Output Total 1160 1390 Balance 59.6 -268 Result Diagrams: 09/30/20 03:27 09/30/20 03:27 Additional Labs: Accuchecks 09/30/20 09/29/20 09/29/20 11:11 20:37 16:44 POC Glucose 189 H 147 H 185 H Labs and MAR reviewed by me EKG Reviewed by me: Yes (Telemetry shows normal sinus rhythm) Hospitalist ROS - Review of Systems Respiratory: denies: cough, shortness of breath, SOB with excertion, pleuritic pain, wheezing Cardiovascular: denies: chest pain, palpitations, orthopnea, paroxysmal noc. dyspnea, edema, light headedness Gastrointestinal: denies: nausea, vomiting, abdominal pain, diarrhea, constipation, melena, hematochezia - Medication Medications: Active Medications Generic Name Dose Route Start Last Admin Trade Name Freq PRN Reason Stop Dose Admin Hydrocodone Bitart/Acetaminophen 1 tab 09/27/20 15:15 09/28/20 08:52 Hydrocodone/Acetaminophen 5/325 Mg Tablet PO 1 tab Q4H PRN Administration Moderate Pain (4-6) Hydrocodone Bitart/Acetaminophen 2 tab 09/27/20 15:15 09/28/20 04:48 Hydrocodone/Acetaminophen 5/325 Mg Tablet PO 2 tab Q4H PRN Administration Severe Pain (7-10) Amiodarone HCl 400 mg 09/28/20 21:00 09/30/20 09:22 Amiodarone 200 Mg Tab PO 400 mg BID KELLE Administration Aspirin 325 mg 09/28/20 09:00 09/30/20 09:23 Aspirin 325 Mg Tab PO 325 mg DAILY KELLE Administration Bisacodyl 10 mg 09/28/20 07:22 09/29/20 21:07 Bisacodyl 5 Mg Tab PO 10 mg Q12H PRN Administration Constipation Enoxaparin Sodium 30 mg 09/29/20 09:00 09/30/20 09:28 Enoxaparin Sodium 30 Mg/0.3 Ml Syringe SC 30 mg 0900 KELLE Administration Famotidine 20 mg 09/28/20 09:00 09/30/20 09:23 Famotidine 20 Mg Tab PO 20 mg BID KELLE Administration Furosemide 40 mg 09/29/20 09:00 09/30/20 09:23 Furosemide 40 Mg Tab PO 40 mg BID KELLE Administration Guaifenesin/Dextromethorphan 15 ml 09/27/20 15:15 09/29/20 20:59 Guaifenesin Dm 100-10/5 Ml Udcup PO 15 ml Q4H PRN Administration Cough Dobutamine HCl/Dextrose 250 mls @ 6.246 mls/hr 09/29/20 05:44 09/29/20 06:43 Dobutamine 500 Mg/250 Ml IVPB 250 mls INF KELLE Administration Protocol 3 MCG/KG/MIN Insulin Human Regular 0 units 09/28/20 08:15 09/29/20 18:37 Insulin Regular 300 Units/3 Ml Vial SC 4 unit Q4H PRN Administration POST OP SLIDING SCALE Protocol Metformin HCl 1,000 mg 09/29/20 08:00 09/30/20 09:22 Metformin 500 Mg Tab PO 1,000 mg BID-WM KELLE Administration Polyethylene Glycol 17 gm 09/28/20 09:00 09/29/20 08:01 Polyethylene Glycol 3350 17 Gm Packet PO 17 gm DAILY KELLE Administration Sodium Chloride 10 ml 09/29/20 09:00 09/30/20 09:30 Flush - Normal Saline 10 Ml Syringe IVF 10 ml Q12HR KELLE Administration Spironolactone 25 mg 09/29/20 08:00 09/30/20 09:23 Spironolactone 25 Mg Tab PO 25 mg QAM-WM COUNT INCLUDES THE [facility] Administration - Exam General Appearance: awake alert Eye: anicteric sclera ENT: moist mucosa Neck: supple Heart: RRR Respiratory: CTAB Gastrointestinal: soft, non-tender Skin: no rashes Psychiatric: normal affect, normal behavior Hosp A/P - Plan -Assessment/plan Acute on chronic systolic congestive heart failure, NYHA class III Continue furosemide and metolazone Patient is on dobutamine drip. Elevated troponin Multivessel CAD on coronary angiography. Status post CABG x4 . Diabetes mellitus type 2 Continue Accu-Cheks and insulin sliding scale. ischemic cardiomyopathy. Patient has LifeVest. Continue spironolactone
[2020-09-30] MEDS: Polyethylene Glycol 3350 17 GM Packet PO SCH (12:52)
[2020-09-30] MEDS: HYDROcodone/Acetaminophen 5/325 mg Tablet PO PRN ×2 (13:26→20:28)
--- NOTE | 2020-09-30 13:32 | PDOC.CPN ---
- Subjective Date: 09/30/20 Time: 11:15 Interval history: Patient with mild edema, otherwise stable. - Review of Systems General: denies: fever/chills, weight/appetite/sleep changes, night sweats, fatigue Respiratory: denies: cough, congestion, shortness of breath, exercise intolerance Cardiovascular: reports: edema Gastrointestinal: denies: nausea, vomiting, diarrhea, constipation, abd pain, GI bleeding Musculoskeletal: denies: pain, tenderness, stiffness, swelling, arthritis/arthralgias Neurological: denies: numbness, syncope, seizure, weakness - Objective Allergies/Adverse Reactions: Allergies Allergy/AdvReac Type Severity Reaction Status Date / Time No Known Allergies Allergy Unverified 09/20/20 08:23 Visit Medications: Current Medications Acetaminophen (Acetaminophen 325 Mg Tab) 650 mg PO Q6H PRN PRN Reason: Headache/Fever Or Mild Pain Hydrocodone Bitart/Acetaminophen (Hydrocodone/Acetaminophen 5/325 Mg Tablet) 1 tab PO Q4H PRN PRN Reason: Moderate Pain (4-6) Last Admin: 09/30/20 13:26 Dose: 1 tab Documented by: Hydrocodone Bitart/Acetaminophen (Hydrocodone/Acetaminophen 5/325 Mg Tablet) 2 tab PO Q4H PRN PRN Reason: Severe Pain (7-10) Last Admin: 09/28/20 04:48 Dose: 2 tab Documented by: Al Hydroxide/Mg Hydroxide (Mag-Al 1200 Mg/1200 Mg/30 Ml Udcup) 30 ml PO Q4H PRN PRN Reason: Indigestion Albuterol/Ipratropium (Ipratropium/Albuterol Sulfate 3 Ml Neb) 3 ml NEB [id number] PRN PRN Reason: SOB Amiodarone HCl (Amiodarone 200 Mg Tab) 400 mg PO BID [facility] Last Admin: 09/30/20 09:22 Dose: 400 mg Documented by: Aspirin (Aspirin 325 Mg Tab) 325 mg PO DAILY [facility] Last Admin: 09/30/20 09:23 Dose: 325 mg Documented by: Bisacodyl (Bisacodyl 5 Mg Tab) 10 mg PO Q12H PRN PRN Reason: Constipation Last Admin: 09/29/20 21:07 Dose: 10 mg Documented by: Bisacodyl (Bisacodyl 10 Mg Supp) 10 mg [place] Q12H PRN PRN Reason: Constipation Dextrose/Water (Dextrose 50% Abboject 50 Ml Syringe) 25 gm SLOW IVP PRN PRN PRN Reason: PER HYPOGLYCEMIC PROTOCOL Enoxaparin Sodium (Enoxaparin Sodium 30 Mg/0.3 Ml Syringe) 30 mg SC 0900 [facility] Last Admin: 09/30/20 09:28 Dose: 30 mg Documented by: Famotidine (Famotidine 20 Mg Tab) 20 mg PO BID [facility] Last Admin: 09/30/20 09:23 Dose: 20 mg Documented by: Furosemide (Furosemide 40 Mg Tab) 40 mg PO BID [facility] Last Admin: 09/30/20 09:23 Dose: 40 mg Documented by: Glucagon (Glucagon 1 Mg/Ml Vial) 1 mg SC PRN PRN PRN Reason: PER HYPOGLYCEMIC PROTOCOL Guaifenesin/Dextromethorphan (Guaifenesin Dm 100-10/5 Ml Udcup) 15 ml PO Q4H PRN PRN Reason: Cough Last Admin: 09/29/20 20:59 Dose: 15 ml Documented by: Dextrose/Water (D5w) 1,000 mls @ 0 mls/hr IV INF PRN PRN Reason: PRN HYPOGLYCEMIC PROTOCOL Dobutamine HCl/Dextrose (Dobutamine 500 Mg/250 Ml) 250 mls @ 6.246 mls/hr IVPB INF [facility]; Protocol Last Admin: 09/29/20 06:43 Dose: 250 mls Documented by: Insulin Human Regular (Insulin Regular 300 Units/3 Ml Vial) 0 units SC Q4H PRN; Protocol PRN Reason: POST OP SLIDING SCALE Last Admin: 09/29/20 18:37 Dose: 4 unit Documented by: Metformin HCl (Metformin 500 Mg Tab) 1,000 mg PO BID-[facility] Last Admin: 09/30/20 09:22 Dose: 1,000 mg Documented by: Mineral Oil (Mineral Oil Enema) 133 ml [place] DAILYPRN PRN PRN Reason: Constipation Miscellaneous Medication (Post-Op Sliding Scale ) 1 each FS PRN PRN PRN Reason: PRN Nitroglycerin (Nitroglycerin 0.4 Mg Tab (25 Tab Bottle)) 0.4 mg SL Q5MIN PRN PRN Reason: Chest Pain Ondansetron HCl (Ondansetron Pf 4 Mg/2 Ml Vial) 4 mg IVP Q6H PRN PRN Reason: Nausea/Vomiting Polyethylene Glycol (Polyethylene Glycol 3350 17 Gm Packet) 17 gm PO DAILY [facility] Last Admin: 09/30/20 12:52 Dose: 17 gm Documented by: Sodium Chloride (Flush - Normal Saline 10 Ml Syringe) 10 ml IVF Q12HR [facility] Last Admin: 09/30/20 09:30 Dose: 10 ml Documented by: Sodium Chloride (Flush - Normal Saline 10 Ml Syringe) 10 ml IVF PRN PRN PRN Reason: Saline Flush Spironolactone (Spironolactone 25 Mg Tab) 25 mg PO QAM-WM [facility] Last Admin: 09/30/20 09:23 Dose: 25 mg Documented by: Vital Signs & Weight: Vital Signs Temp Pulse Pulse Pulse Resp BP BP 09/30/20 09:11 98.4 F 81 16 09/30/20 08:47 93 84 118/62 116/59 L 09/30/20 04:00 98.7 F 80 16 BP BP Pulse Ox Pulse Ox Pulse Ox 09/30/20 09:11 118/62 98 09/30/20 08:47 98 96 09/30/20 04:00 119/67 99 Admit Weight 153 lb Weight 165 lb 11.2 oz - Quality Measures Condition: Heart Failure CV meds: Beta Devonte: Yes, CARLOS/ARB: Yes, ASA: Yes - Physical Exam General: alert & oriented x3, appears well HEENT: mucus membranes moist Neck: supple neck Cardiac: regular rate and rhythm Lungs: no wheezes, no rhonchi Neuro: grossly intact Abdomen: soft, non-tender Extremities: 1+ LE edema Skin: clear Musculoskeletal: no pain - Labs Result Diagrams: 09/30/20 03:27 09/30/20 03:27 Troponin/CKMB CK-MB (CK-2) 7.1 ng/mL (0-6.6) H* 09/20/20 05:15 Troponin I 0.052 ng/mL (< 0.028) H 09/20/20 11:33 - Assessment/Plan Assessment/Plan: 1. Severe ICMO 2. CAD s/p CABG 3. Acute on chronic systolic CHF Continue dobutamine one more day, then stop and add Coreg. Diurese. Will give one dose of zaroxolyn. BPs more stable in last 24 hours. RG 09/30 Pt seen and examined. Agree with the above doing very well continue with dobutrx overnight wean off in am and add BB
--- NOTE | 2020-09-30 15:05 | EKG ---
Test Reason : Blood Pressure : / mmHG Vent. Rate : 098 BPM Atrial Rate : 098 BPM P-R Int : 142 ms QRS Dur : 102 ms QT Int : 390 ms P-R-T Axes : 043 -42 120 degrees QTc Int : 497 ms Normal sinus rhythm Possible Left atrial enlargement Left axis deviation Incomplete right bundle branch block Left ventricular hypertrophy with repolarization abnormality Prolonged QT Abnormal ECG Confirmed by CRISTOBAL BELCHER ([id number]), rewrite editor SHARYN VILLA ([id number]) on 09/30/2020 3:05:03 PM Referred By: Confirmed By:CRISTOBAL BELCHER
[2020-09-30] MEDS: Bisacodyl 5 MG TAB PO PRN (17:19)
[2020-09-30] MEDS: Insulin Regular 300 UNITS/3 ML VIAL SC PRN (17:23)
[2020-09-30] MEDS: DOBUTamine 500 mg/250 ml 250 ML IVPB SCH (20:27)
[2020-10-01] MEDS: Insulin Regular 300 UNITS/3 ML VIAL SC PRN ×3 (06:33→22:33)
[2020-10-01] MEDS ORDERED: DOBUTamine 500 mg/250 ml 250 ML IVPB SCH ×2 (06:46→10:37)
[2020-10-01] MEDS ORDERED: Magnesium Citrate 300 ML BOT PO SCH (07:00)
[2020-10-01] MEDS: Enoxaparin Sodium 30 MG/0.3 ML SYRINGE SC SCH (08:18)
[2020-10-01] MEDS: Spironolactone 25 MG TAB PO SCH (08:18)
[2020-10-01] MEDS: Amiodarone 200 MG TAB PO SCH ×2 (08:18→21:30)
[2020-10-01] MEDS: Aspirin 325 MG TAB PO SCH (08:19)
[2020-10-01] MEDS: metFORMIN 500 MG TAB PO SCH ×2 (08:19→16:39)
[2020-10-01] MEDS: Famotidine 20 MG TAB PO SCH ×2 (08:19→21:30)
[2020-10-01] MEDS: Furosemide 40 MG TAB PO SCH ×2 (08:19→21:31)
[2020-10-01] MEDS ORDERED: Metolazone 5 MG TAB PO SCH (08:45)
--- NOTE | 2020-10-01 10:36 | PDOC.CPN ---
- Subjective Date: 10/01/20 Time: 09:30 Interval history: Feels good. Walking frequently. Increased urination yesterday and good output. Less edema. - Review of Systems General: denies: fever/chills, weight/appetite/sleep changes, night sweats, fatigue Respiratory: denies: cough, congestion, shortness of breath, exercise intolera nce Cardiovascular: denies: chest pain, palpitation, edema, paroxysmal nocturnal dyspnea, orthopnea Gastrointestinal: denies: nausea, vomiting, diarrhea, constipation, abd pain, GI bleeding Musculoskeletal: denies: pain, tenderness, stiffness, swelling, arthritis/arthralgias Neurological: denies: numbness, syncope, seizure, weakness - Objective Allergies/Adverse Reactions: Allergies Allergy/AdvReac Type Severity Reaction Status Date / Time No Known Allergies Allergy Unverified 09/20/20 08:23 Visit Medications: Current Medications Acetaminophen (Acetaminophen 325 Mg Tab) 650 mg PO Q6H PRN PRN Reason: Headache/Fever Or Mild Pain Hydrocodone Bitart/Acetaminophen (Hydrocodone/Acetaminophen 5/325 Mg Tablet) 1 tab PO Q4H PRN PRN Reason: Moderate Pain (4-6) Last Admin: 09/30/20 13:26 Dose: 1 tab Documented by: Hydrocodone Bitart/Acetaminophen (Hydrocodone/Acetaminophen 5/325 Mg Tablet) 2 tab PO Q4H PRN PRN Reason: Severe Pain (7-10) Last Admin: 09/30/20 20:28 Dose: 2 tab Documented by: Al Hydroxide/Mg Hydroxide (Mag-Al 1200 Mg/1200 Mg/30 Ml Udcup) 30 ml PO Q4H PRN PRN Reason: Indigestion Albuterol/Ipratropium (Ipratropium/Albuterol Sulfate 3 Ml Neb) 3 ml NEB [id number] PRN PRN Reason: SOB Amiodarone HCl (Amiodarone 200 Mg Tab) 400 mg PO BID [facility] Last Admin: 10/01/20 08:18 Dose: 400 mg Documented by: Aspirin (Aspirin 325 Mg Tab) 325 mg PO DAILY [facility] Last Admin: 10/01/20 08:19 Dose: 325 mg Documented by: Bisacodyl (Bisacodyl 5 Mg Tab) 10 mg PO Q12H PRN PRN Reason: Constipation Last Admin: 09/30/20 17:19 Dose: 10 mg Documented by: Bisacodyl (Bisacodyl 10 Mg Supp) 10 mg MS Q12H PRN PRN Reason: Constipation Dextrose/Water (Dextrose 50% Abboject 50 Ml Syringe) 25 gm SLOW IVP PRN PRN PRN Reason: PER HYPOGLYCEMIC PROTOCOL Enoxaparin Sodium (Enoxaparin Sodium 30 Mg/0.3 Ml Syringe) 30 mg SC 0900 [facility] Last Admin: 10/01/20 08:18 Dose: 30 mg Documented by: Famotidine (Famotidine 20 Mg Tab) 20 mg PO BID [facility] Last Admin: 10/01/20 08:19 Dose: 20 mg Documented by: Furosemide (Furosemide 40 Mg Tab) 40 mg PO BID [facility] Last Admin: 10/01/20 08:19 Dose: 40 mg Documented by: Glucagon (Glucagon 1 Mg/Ml Vial) 1 mg SC PRN PRN PRN Reason: PER HYPOGLYCEMIC PROTOCOL Guaifenesin/Dextromethorphan (Guaifenesin Dm 100-10/5 Ml Udcup) 15 ml PO Q4H PRN PRN Reason: Cough Last Admin: 09/29/20 20:59 Dose: 15 ml Documented by: Dextrose/Water (D5w) 1,000 mls @ 0 mls/hr IV INF PRN PRN Reason: PRN HYPOGLYCEMIC PROTOCOL Dobutamine HCl/Dextrose (Dobutamine 500 Mg/250 Ml) 250 mls @ 3.123 mls/hr IVPB INF [facility]; Protocol Insulin Human Regular (Insulin Regular 300 Units/3 Ml Vial) 0 units SC Q4H PRN; Protocol PRN Reason: POST OP SLIDING SCALE Last Admin: 10/01/20 06:33 Dose: 4 unit Documented by: Metformin HCl (Metformin 500 Mg Tab) 1,000 mg PO BID[facility] Last Admin: 10/01/20 08:19 Dose: 1,000 mg Documented by: Metolazone (Metolazone 5 Mg Tab) 5 mg PO NOW [facility] Stop: 10/01/20 10:45 Last Admin: 10/01/20 08:45 Dose: 5 mg Documented by: Mineral Oil (Mineral Oil Enema) 133 ml MS DAILYPRN PRN PRN Reason: Constipation Miscellaneous Medication (Post-Op Sliding Scale ) 1 each FS PRN PRN PRN Reason: PRN Nitroglycerin (Nitroglycerin 0.4 Mg Tab (25 Tab Bottle)) 0.4 mg SL Q5MIN PRN PRN Reason: Chest Pain Ondansetron HCl (Ondansetron Pf 4 Mg/2 Ml Vial) 4 mg IVP Q6H PRN PRN Reason: Nausea/Vomiting Polyethylene Glycol (Polyethylene Glycol 3350 17 Gm Packet) 17 gm PO DAILY [facility] Last Admin: 09/30/20 12:52 Dose: 17 gm Documented by: Sodium Chloride (Flush - Normal Saline 10 Ml Syringe) 10 ml IVF Q12HR [facility] Last Admin: 10/01/20 08:22 Dose: Not Given Documented by: Sodium Chloride (Flush - Normal Saline 10 Ml Syringe) 10 ml IVF PRN PRN PRN Reason: Saline Flush Spironolactone (Spironolactone 25 Mg Tab) 25 mg PO QAM-WM [facility] Last Admin: 10/01/20 08:18 Dose: 25 mg Documented by: Vital Signs & Weight: Vital Signs Temp Pulse Resp BP BP Pulse Ox 10/01/20 07:13 98.3 F 80 18 103/64 98 10/01/20 04:00 98.6 F 85 18 129/64 97 10/01/20 00:00 81 112/66 Admit Weight 153 lb Weight 165 lb 11.2 oz - Quality Measures Condition: Heart Failure CV meds: Beta Devonte: Yes, CARLOS/ARB: Yes, ASA: Yes - Physical Exam General: alert & oriented x3, appears well, no apparent distress HEENT: mucus membranes moist Neck: supple neck Cardiac: regular rate and rhythm Lungs: no wheeze, rales, rhonchi Neuro: grossly intact Abdomen: soft, non-tender Extremities: other: (trace bilateral EDINSON, R>L) Skin: clear Musculoskeletal: no pain - Labs Result Diagrams: 09/30/20 03:27 09/30/20 03:27 Troponin/CKMB CK-MB (CK-2) 7.1 ng/mL (0-6.6) H* 09/20/20 05:15 Troponin I 0.052 ng/mL (< 0.028) H 09/20/20 11:33 - Assessment/Plan Assessment/Plan: 1. Severe ICMO 2. CAD s/p CABG 3. Acute on chronic systolic CHF Will give one more dose of zaroxolyn. Wean dobutamine. Start low dose coreg tonight.
[2020-10-01] MEDS: Polyethylene Glycol 3350 17 GM Packet PO SCH (14:03)
--- NOTE | 2020-10-01 15:14 | PDOC.HOSPP ---
- Subjective Encounter Date: 10/01/20 Encounter Time: 10:00 Subjective: Patient seen for follow-up for congestive heart failure. Reports sleeping well, denies any complaints at this time. - Objective Vital Signs & Weight: Vital Signs (12 hours) Temp Pulse Pulse Pulse Resp BP BP 10/01/20 11:05 98.3 F 85 18 10/01/20 09:39 90 80 125/71 116/66 10/01/20 07:13 98.3 F 80 18 10/01/20 04:00 98.6 F 85 18 BP BP Pulse Ox Pulse Ox Pulse Ox 10/01/20 11:05 89/61 L 97 10/01/20 09:39 100 98 10/01/20 07:13 103/64 98 10/01/20 04:00 129/64 97 Weight Admit Weight 153 lb Weight 165 lb 11.2 oz Most Recent Monitor Data Heart Rate from ECG 86 NIBP 119/64 NIBP BP-Mean 82 Respiration from ECG 19 SpO2 95 I&O: 09/30/20 10/01/20 10/02/20 06:59 06:59 06:59 Intake Total 1122 1310.5 Output Total 1390 2300 Balance -268 -989.5 Result Diagrams: 09/30/20 03:27 09/30/20 03:27 Additional Labs: Accuchecks 10/01/20 10/01/20 09/30/20 10:26 05:16 20:13 POC Glucose 210 H 161 H 163 H 09/30/20 17:00 POC Glucose 220 H I reviewed patient's labs and MAR EKG Reviewed by me: Yes (Normal sinus rhythm on telemetry) Hospitalist ROS - Review of Systems Respiratory: denies: cough, shortness of breath, SOB with excertion, pleuritic pain, wheezing Cardiovascular: denies: chest pain, palpitations, orthopnea, paroxysmal noc. dyspnea, edema, light headedness - Medication Medications: Active Medications Generic Name Dose Route Start Last Admin Trade Name Freq PRN Reason Stop Dose Admin Hydrocodone Bitart/Acetaminophen 1 tab 09/27/20 15:15 09/30/20 13:26 Hydrocodone/Acetaminophen 5/325 Mg Tablet PO 1 tab Q4H PRN Administration Moderate Pain (4-6) Hydrocodone Bitart/Acetaminophen 2 tab 09/27/20 15:15 09/30/20 20:28 Hydrocodone/Acetaminophen 5/325 Mg Tablet PO 2 tab Q4H PRN Administration Severe Pain (7-10) Amiodarone HCl 400 mg 09/28/20 21:00 10/01/20 08:18 Amiodarone 200 Mg Tab PO 400 mg BID K[facility]LE Administration Aspirin 325 mg 09/28/20 09:00 10/01/20 08:19 Aspirin 325 Mg Tab PO 325 mg DAILY [facility]LE Administration Bisacodyl 10 mg 09/28/20 07:22 09/30/20 17:19 Bisacodyl 5 Mg Tab PO 10 mg Q12H PRN Administration Constipation Enoxaparin Sodium 30 mg 09/29/20 09:00 10/01/20 08:18 Enoxaparin Sodium 30 Mg/0.3 Ml Syringe SC 30 mg 0900 [facility] Administration Famotidine 20 mg 09/28/20 09:00 10/01/20 08:19 Famotidine 20 Mg Tab PO 20 mg BID [facility] Administration Furosemide 40 mg 09/29/20 09:00 10/01/20 08:19 Furosemide 40 Mg Tab PO 40 mg BID [facility] Administration Guaifenesin/Dextromethorphan 15 ml 09/27/20 15:15 09/29/20 20:59 Guaifenesin Dm 100-10/5 Ml Udcup PO 15 ml Q4H PRN Administration Cough Insulin Human Regular 0 units 09/28/20 08:15 10/01/20 11:07 Insulin Regular 300 Units/3 Ml Vial SC 6 unit Q4H PRN Administration POST OP SLIDING SCALE Protocol Metformin HCl 1,000 mg 09/29/20 08:00 10/01/20 08:19 Metformin 500 Mg Tab PO 1,000 mg BID-WM KELLE Administration Polyethylene Glycol 17 gm 09/28/20 09:00 10/01/20 14:03 Polyethylene Glycol 3350 17 Gm Packet PO Not Given DAILY [facility] Sodium Chloride 10 ml 09/29/20 09:00 10/01/20 08:22 Flush - Normal Saline 10 Ml Syringe IVF Not Given Q12HR KELLE Spironolactone 25 mg 09/29/20 08:00 10/01/20 08:18 Spironolactone 25 Mg Tab PO 25 mg QAM-WM [facility]LE Administration - Exam General Appearance: awake alert Eye: anicteric sclera ENT: normocephalic atraumatic Neck: supple Heart: RRR Respiratory: CTAB Gastrointestinal: soft, non-tender Skin: no rashes Psychiatric: normal affect, normal behavior Hosp A/P - Plan Patient is a pleasant 65-year-old gentleman who was admitted to the hospital on September 20, 2020 for congestive heart failure exacerbation. 2D echocardiogram showed left ventricular ejection fraction of 10 to 15%. He was treated with diuretics. He was fitted with LifeVest. He underwent cardiac catheterization on September 20, 2020, which showed multivessel coronary artery disease. He was seen by cardiovascular surgery service and on September 27 he underwent coronary artery bypass graft x4. He was started on dobutamine drip for hypotension. He continues to improve slowly. -Assessment/plan Acute on chronic systolic congestive heart failure, NYHA class III Continue furosemide and metolazone Continue dobutamine drip. Elevated troponin Multivessel CAD on coronary angiography. Status post CABG x4 . Diabetes mellitus type 2 Continue Accu-Cheks and insulin sliding scale. ischemic cardiomyopathy. Patient has LifeVest. Cardiology following
[2020-10-01] MEDS: Carvedilol 3.125 MG TAB PO SCH (16:40)
[2020-10-01] MEDS: HYDROcodone/Acetaminophen 5/325 mg Tablet PO PRN (21:31)
[2020-10-02] MEDS: Famotidine 20 MG TAB PO SCH ×2 (08:21→20:10)
[2020-10-02] MEDS: Carvedilol 3.125 MG TAB PO SCH ×2 (08:21→16:38)
[2020-10-02] MEDS: Spironolactone 25 MG TAB PO SCH (08:21)
[2020-10-02] MEDS: Aspirin 325 MG TAB PO SCH (08:21)
[2020-10-02] MEDS: Enoxaparin Sodium 30 MG/0.3 ML SYRINGE SC SCH (08:21)
[2020-10-02] MEDS: Amiodarone 200 MG TAB PO SCH ×2 (08:21→09:22)
[2020-10-02] MEDS: metFORMIN 500 MG TAB PO SCH ×2 (08:21→16:38)
[2020-10-02] MEDS: Furosemide 40 MG TAB PO SCH ×2 (08:21→20:10)
[2020-10-02] MEDS: Polyethylene Glycol 3350 17 GM Packet PO SCH (08:22)
--- NOTE | 2020-10-02 09:06 | PRG ---
DATE OF SERVICE: 10/02/2020 SUBJECTIVE: Mr. Ratliff is feeling well. He is up walking in the halls. His blood pressure matt with walking. It is actually 130 systolic now and just after he finished walking. OBJECTIVE: VITAL SIGNS: His blood pressure otherwise has been about 100 systolic. LUNGS: Clear. CARDIAC: Normal S1, normal S2. ABDOMEN: Soft, nontender. EXTREMITIES: No edema. ASSESSMENT: 1. Status post high risk bypass surgery with excellent results. 2. Congestive heart failure, systolic acute on chronic, better compensated. Blood pressure relatively low. PLAN: 1. Stop dobutamine. 2. Increase carvedilol tomorrow. 3. Still blood pressure too low for Entresto. 4. Reduce amiodarone. He has not had any atrial arrhythmias fortunately. Job ID: [id number]
[2020-10-02] MEDS: Insulin Regular 300 UNITS/3 ML VIAL SC PRN ×2 (12:14→17:20)
--- NOTE | 2020-10-02 14:38 | PDOC.HOSPP ---
- Subjective Encounter Date: 10/02/20 Encounter Time: 08:30 Subjective: Patient seen in follow-up for congestive heart failure exacerbation. He denies any complaints today. - Objective Vital Signs & Weight: Vital Signs (12 hours) Temp Pulse Pulse Pulse Resp BP BP 10/02/20 13:46 84 75 113/65 96/61 10/02/20 11:40 98.8 F 76 16 10/02/20 08:25 83 86 130/76 120/71 10/02/20 07:33 98.7 F 77 16 10/02/20 03:07 98.4 F 71 16 BP BP Pulse Ox 10/02/20 13:46 10/02/20 11:40 88/57 L 98 10/02/20 08:25 10/02/20 07:33 100/65 97 10/02/20 03:07 99/57 L 96 Weight Admit Weight 153 lb Weight 156 lb Most Recent Monitor Data Heart Rate from ECG 86 NIBP 119/64 NIBP BP-Mean 82 Respiration from ECG 19 SpO2 95 I&O: 10/01/20 10/02/20 10/03/20 06:59 06:59 06:59 Intake Total 1310.5 2230 Output Total 2300 2390 Balance -989.5 -160 Result Diagrams: 09/30/20 03:27 09/30/20 03:27 Additional Labs: Accuchecks 10/02/20 10/02/20 10/02/20 13:06 10:49 05:55 POC Glucose 137 H 161 H 138 H 10/01/20 10/01/20 09/30/20 19:57 16:22 05:54 POC Glucose 150 H 133 H 137 H Labs and MAR reviewed by me EKG Reviewed by me: Yes (Normal sinus rhythm on telemetry) Hospitalist ROS - Review of Systems Cardiovascular: denies: chest pain, palpitations, orthopnea, paroxysmal noc. dyspnea, edema, light headedness Gastrointestinal: denies: nausea, vomiting, abdominal pain, diarrhea, constipation, melena, hematochezia - Medication Medications: Active Medications Generic Name Dose Route Start Last Admin Trade Name Freq PRN Reason Stop Dose Admin Hydrocodone Bitart/Acetaminophen 1 tab 09/27/20 15:15 09/30/20 13:26 Hydrocodone/Acetaminophen 5/325 Mg Tablet PO 1 tab Q4H PRN Administration Moderate Pain (4-6) Hydrocodone Bitart/Acetaminophen 2 tab 09/27/20 15:15 10/01/20 21:31 Hydrocodone/Acetaminophen 5/325 Mg Tablet PO 2 tab Q4H PRN Administration Severe Pain (7-10) Amiodarone HCl 400 mg 10/02/20 09:00 10/02/20 09:22 Amiodarone 200 Mg Tab PO 400 mg DAILY [facility]LE Administration Aspirin 325 mg 09/28/20 09:00 10/02/20 08:21 Aspirin 325 Mg Tab PO 325 mg DAILY [facility] Administration Bisacodyl 10 mg 09/28/20 07:22 09/30/20 17:19 Bisacodyl 5 Mg Tab PO 10 mg Q12H PRN Administration Constipation Carvedilol 1.5625 mg 10/01/20 17:00 10/02/20 08:21 Carvedilol 3.125 Mg Tab PO 1.5625 mg BID-WM KELLE Administration Enoxaparin Sodium 30 mg 09/29/20 09:00 10/02/20 08:21 Enoxaparin Sodium 30 Mg/0.3 Ml Syringe SC 30 mg 0900 [facility]LE Administration Famotidine 20 mg 09/28/20 09:00 10/02/20 08:21 Famotidine 20 Mg Tab PO 20 mg BID K[facility]LE Administration Furosemide 40 mg 09/29/20 09:00 10/02/20 08:21 Furosemide 40 Mg Tab PO 40 mg BID K[facility]LE Administration Guaifenesin/Dextromethorphan 15 ml 09/27/20 15:15 09/29/20 20:59 Guaifenesin Dm 100-10/5 Ml Udcup PO 15 ml Q4H PRN Administration Cough Insulin Human Regular 0 units 09/28/20 08:15 10/02/20 12:14 Insulin Regular 300 Units/3 Ml Vial SC 4 unit Q4H PRN Administration POST OP SLIDING SCALE Protocol Metformin HCl 1,000 mg 09/29/20 08:00 10/02/20 08:21 Metformin 500 Mg Tab PO 1,000 mg BID-WM K[facility]LE Administration Polyethylene Glycol 17 gm 09/28/20 09:00 10/02/20 08:22 Polyethylene Glycol 3350 17 Gm Packet PO Not Given DAILY K[facility]LE Sodium Chloride 10 ml 09/29/20 09:00 10/02/20 08:22 Flush - Normal Saline 10 Ml Syringe IVF 10 ml Q12HR K[facility]LE Administration Spironolactone 25 mg 09/29/20 08:00 10/02/20 08:21 Spironolactone 25 Mg Tab PO 25 mg QAM-WM KELLE Administration - Exam General Appearance: awake alert Eye: anicteric sclera ENT: moist mucosa Neck: supple Heart: RRR Respiratory: CTAB Gastrointestinal: soft Extremities: no clubbing Skin: no rashes Psychiatric: normal affect Hosp A/P - Plan Patient is a pleasant 65-year-old gentleman who was admitted to the hospital on September 20, 2020 for congestive heart failure exacerbation. 2D echocardiogram showed left ventricular ejection fraction of 10 to 15%. He was treated with diuretics. He was fitted with LifeVest. He underwent cardiac catheterization on September 20, 2020, which showed multivessel coronary artery disease. He was seen by cardiovascular surgery service and on September 27 he underwent coronary artery bypass graft x4. He was started on dobutamine drip for hypotension. He continues to improve slowly. -Assessment/plan Acute on chronic systolic congestive heart failure, NYHA class III Continue furosemide 40 mg IV twice daily. Patient has been weaned off of dobutamine drip. Elevated troponin Multivessel CAD on coronary angiography. Status post CABG x4 . Diabetes mellitus type 2 Continue Accu-Cheks and insulin sliding scale. ischemic cardiomyopathy. Patient has LifeVest. Started on low-dose Coreg today.
[2020-10-03] MEDS: HYDROcodone/Acetaminophen 5/325 mg Tablet PO PRN (00:30)
[2020-10-03 04:26] LABS: Anion Gap 14 mmol/L (10-20); BUN (Urea Nitrogen) 25 mg/dL (8.4-25.7); Calc. Creatinine Clearance 55 mL/min (70-130); Calcium 9.1 mg/dL (7.8-10.44); Carbon Dioxide 34 mmol/L (23-31); Chloride 91 mmol/L (98-107); Glucose 136 mg/dL (80-115); Potassium 4.2 mmol/L (3.5-5.1); Sodium 135 mmol/L (136-145)
[2020-10-03] MEDS: Insulin Regular 300 UNITS/3 ML VIAL SC PRN ×2 (05:22→11:02)
[2020-10-03] MEDS: Spironolactone 25 MG TAB PO SCH (08:20)
[2020-10-03] MEDS: Furosemide 40 MG TAB PO SCH (08:20)
[2020-10-03] MEDS: Amiodarone 200 MG TAB PO SCH (08:20)
[2020-10-03] MEDS: Aspirin 325 MG TAB PO SCH (08:20)
[2020-10-03] MEDS: Enoxaparin Sodium 30 MG/0.3 ML SYRINGE SC SCH (08:20)
[2020-10-03] MEDS: Famotidine 20 MG TAB PO SCH (08:20)
[2020-10-03] MEDS: metFORMIN 500 MG TAB PO SCH ×2 (08:20→16:38)
[2020-10-03] MEDS: Polyethylene Glycol 3350 17 GM Packet PO SCH (08:26)
[2020-10-03] MEDS: Carvedilol 3.125 MG TAB PO SCH ×2 (08:55→16:38)
--- NOTE | 2020-10-03 09:36 | PRG ---
DATE OF SERVICE: 10/03/2020 SUBJECTIVE: Mr. Ratliff just went for a walk. He is doing well. OBJECTIVE: VITAL SIGNS: His blood pressure before he walked apparently was in the 90 systolic range, it is 104/65 after walking. Pulse is 80 and it is regular. LUNGS: Clear. CARDIAC: Normal S1 and normal S2. ABDOMEN: Soft and nontender. ASSESSMENT: 1. Status post coronary artery bypass grafting, doing well. 2. Congestive heart failure, stable. 3. Relatively hypotensive as is frequently seen postoperatively. PLAN: 1. He is on Coreg. We will increase dose to 3.125 mg twice a day. 2. Amiodarone 400 mg a day to prevention. 3. Lasix. 4. Spironolactone. 5. Blood pressure is still too low for CARLOS inhibitors or angiotensin receptor blockers. Reduce amiodarone to 200 mg once a day when he leaves, just do that for 30 days. Job ID: [id number]
--- NOTE | 2020-10-03 14:10 | PDOC.DS.DS ---
Provider - Provider Date of Admission: 09/20/20 08:39 Date of Discharge: 10/03/20 Admitting Provider: Karson Mccallum MD Consultations: Cardiology (Dr. Schulz), None (CV surgery: Dr. Saunders) Primary Care Physician: Chon Sahu MD Course - Hospital Course Hospital Course: Discharge diagnosis: 1. Acute on chronic systolic congestive heart failure NYHA class III 2. Ischemic cardiomyopathy 3. Coronary artery disease, newly diagnosed 4. Coronary artery bypass graft x4 during this hospitalization 5. Hyponatremia 6. Acute kidney injury 7. COVID-19 PCR test negative Hospital course: Patient is a pleasant 65-year-old gentleman who was admitted to the hospital on September 202019 for congestive heart failure exacerbation. He was treated with intravenous diuretics. 2D echocardiogram showed left ventricular ejection fraction of 10 to 15%, inferior akinesia, moderate to severe mitral regurgitation and mild tricuspid regurgitation. On September 25 he underwent coronary angiography that showed 80% distal left main stenosis as well as disease in his mid right coronary artery of about 70% and mid PDA of about 70% to 80%. On September 27 he underwent coronary artery bypass graft x4. He was fitted with a LifeVest. He was started on low-dose dobutamine secondary to low blood pressure. He was started on amiodarone in an attempt to minimize risk of postoperative atrial fibrillation,. He continued to improve clinically. He was weaned off of dobutamine and was started on carvedilol. On the day of discharge his creatinine was found to have increased to 1.35. His Lasix dose was decreased from 40 mg 2 times a day to 40 mg daily. Metformin is on hold. Jardiance is on hold as well to prevent hypoglycemia. He has been advised to check his blood sugars, blood pressure and heart rate 3 times a day and shows readings to his primary care provider. He has been cleared for discharge by consulting services, and is being discharged home in a stable condition. He is supposed to continue amiodarone only for 1 month. Many thanks for allowing me to participate in your patient's care. Please feel free to contact me with any questions or concerns. Discharge destination: Home Total amount of time spent coordinating this discharge: 32 minutes - Labs Lab Results: 09/30/20 03:27 10/03/20 03:45 Abnormal Lab Results - Last 48 hrs 10/03/20 03:45: Sodium 135 L, Chloride 91 L, Carbon Dioxide 34 H, Creatinine 1.35 H - Physical Exam Vitals: Vital Signs (12 hours) Temp Pulse Pulse Pulse Resp BP BP 10/03/20 11:36 79 77 110/66 97/58 L 10/03/20 11:29 98.4 F 70 16 10/03/20 09:05 81 77 103/56 L 89/56 L 10/03/20 07:16 98.6 F 82 17 10/03/20 03:34 98.4 F 72 17 BP Pulse Ox Pulse Ox Pulse Ox 10/03/20 11:36 99 98 10/03/20 11:29 99/62 100 10/03/20 09:05 10/03/20 07:16 104/65 100 10/03/20 03:34 101/62 98 Weight Admit Weight 153 lb Weight 156 lb 14.4 oz Most Recent Monitor Data Heart Rate from ECG 86 NIBP 119/64 NIBP BP-Mean 82 Respiration from ECG 19 SpO2 95 Physical Exam: The patient was seen and examined on the day of discharge. Patient denies chest pain or shortness of breath. Vital signs are stable. S1 and S2 are heard. Lungs are clear to auscultation bilaterally. Plan - Discharge Medications Prescriptions: Spironolactone [Aldactone] 25 mg PO QAM-WM #30 tab Amiodarone [Cordarone] 200 mg PO DAILY #30 tab Carvedilol [Coreg] 3.125 mg PO BID-WM #60 tab Rosuvastatin [Crestor] 20 mg PO DAILY #30 tab Furosemide [Lasix] 40 mg PO DAILY-AC #30 tab Home Medications: Medication Instructions Recorded Confirmed Type glipiZIDE [Glucotrol] 10 mg PO BID 09/20/20 09/21/20 History Amiodarone [Cordarone] 200 mg PO DAILY #30 tab 10/03/20 Rx Aspirin 325 mg PO DAILY tab 10/03/20 Rx Carvedilol [Coreg] 3.125 mg PO BID-WM #60 tab 10/03/20 Rx Furosemide [Lasix] 40 mg PO DAILY-AC #30 tab 10/03/20 Rx Rosuvastatin [Crestor] 20 mg PO DAILY #30 tab 10/03/20 Rx Spironolactone [Aldactone] 25 mg PO QAM-WM #30 tab 10/03/20 Rx Allergies: No Known Allergies Allergy (Unverified 09/20/20 08:23) - Discharge Instructions Discharge Instructions:: Check your blood sugars, blood pressure and heart rate 3 times a day and shows readings to primary care provider. Stop Metformin and Jardiance until advised to resume by primary care provider. Have your renal function checked through primary care provider's office in 5 to 7 days. Activity:: Activity as Tolerated Nourishment:: Diabetic Diet, Heart Healthy Diet, Low Sodium Diet - Follow up Plan Referrals: [facility] - [facility] [Outside] - 10/11/20 1:15 pm (Please note date and time of appointment) Chon Sahu MD [Primary Care Provider] - 10/04/20 10:15 am (Please note date and time of appointment) Chon Saunders MD [Active] - 10/18/20 1:00 pm (Please note date and time of appointment) Chante Schulz MD [Active] - 10/11/20 10:00 am (Please note date and time of appointment) Disposition: HOME Quality - Care Measures CORE MEASURES:: HF - Stroke/TIA Did you prescribe antithrombotic therapy?: Yes Did you prescribe anticoagulant for A Fib/Flutter?: No Specify reason for no DC anticoagulant: Treatment not indicated Did you prescribe a statin medication?: Yes
[2020-10-03] MEDS ORDERED: diphenhydrAMINE 50 MG/ML VIAL IVP SCH (17:15)
[2020-10-03] MEDS ORDERED: Famotidine/PF 20 mg/2ml Vial SLOW IVP SCH (17:15)
[2020-10-03 18:45] VITALS: BP 97/59; TEMP 98
== END 2020-10-03 16:45 | disposition home or self-care (01) | DRG 234 ==
LOC: ERS 04:55 → 2NO 08:39 → OBSVTOIN 08:39 → CCU 09-27 10:07 → 2NO 09-28 09:34
PROVIDERS: ADMIT Internal Medicine; ATTEND Internal Medicine
PROC: B2110ZZ Fluoroscopy of Multiple Coronary Arteries using High Osmolar Contrast (ICD-10-PCS; 2020-09-25)
PROC: B2150ZZ Fluoroscopy of Left Heart using High Osmolar Contrast (ICD-10-PCS; 2020-09-25)
PROC: 4A023N7 Measurement of Cardiac Sampling and Pressure, Left Heart, Percutaneous Approach (ICD-10-PCS; 2020-09-25)
PROC: 02100Z9 Bypass Coronary Artery, One Artery from Left Internal Mammary, Open Approach (ICD-10-PCS; principal; 2020-09-27)
PROC: 021209W Bypass Coronary Artery, Three Arteries from Aorta with Autologous Venous Tissue, Open Approach (ICD-10-PCS; 2020-09-27)
PROC: 06BQ4ZZ Excision of Left Saphenous Vein, Percutaneous Endoscopic Approach (ICD-10-PCS; 2020-09-27)
PROC: 5A1221Z Performance of Cardiac Output, Continuous (ICD-10-PCS; 2020-09-27)
DX: I50.23 Acute on chronic systolic (congestive) heart failure (principal); E87.1 Hypo-osmolality and hyponatremia; N17.9 Acute kidney failure, unspecified; E11.9 Type 2 diabetes mellitus without complications; R77.8 Other specified abnormalities of plasma proteins; I25.10 Atherosclerotic heart disease of native coronary artery without angina pectoris; Z79.899 Other long term (current) drug therapy; Z79.84 Long term (current) use of oral hypoglycemic drugs; Z90.89 Acquired absence of other organs; I25.5 Ischemic cardiomyopathy; Z20.828 Contact with and (suspected) exposure to other viral communicable diseases; I34.0 Nonrheumatic mitral (valve) insufficiency; I07.1 Rheumatic tricuspid insufficiency
CPT/HCPCS: 36415; 36416; 36430; 71045; 76942; 80048; 80053; 80061; 82553; 82805; 83735; 83880; 84443; 84484; 85025; 85610; 85730; 86850; 86900; 86901; 87635; 90471; 90732; 93005; 93010; 93306; 93458; 93798; 94002; 94150; 94760; 96374; 96376; 99152; 99153; G0009; G0378; J0690; J1100; J1200; J1250; J1642; J1644; J1650; J1815; J1885; J1940; J2001; J2150; J2250; J2260; J2405; J2440; J2720; J3010; J3370; J3475; J3480; P9045; Q9967; S0017; S0028; U0003

== ENCOUNTER 2022-02-13 14:19 | Outpatient (CLI) | payer BC ==
[2022-02-14 00:30] LABS: SARS-CoV-2 PCR by NAA Not Detected (NotDetected)
== END 2022-02-13 14:20 | disposition home or self-care (01) ==
LOC: LABBT 14:19
PROVIDERS: ATTEND Internal Medicine Gastroenterology
DX: Z20.822 Contact with and (suspected) exposure to COVID-19 (principal)
CPT/HCPCS: U0003; U0005

== ENCOUNTER 2022-02-14 06:15 | Day surgery (SDC) | payer BC ==
[2022-02-13 09:49] VITALS: BMI 31.1
[2022-02-14] MEDS ORDERED: Ketamine 50 MG/ML (10ML VIAL) ONE (08:07)
[2022-02-14] MEDS ORDERED: Lidocaine 1% PF 5 ML VIAL ONE (08:20)
[2022-02-14] MEDS ORDERED: PROPOFOL 200 MG/20 ML VIAL ONE (08:20)
== END 2022-02-14 10:00 | disposition home or self-care (01) ==
LOC: SDC 06:15
PROVIDERS: ATTEND Internal Medicine Gastroenterology
PROC: 0DJD8ZZ Inspection of Lower Intestinal Tract, Via Natural or Artificial Opening Endoscopic (ICD-10-PCS; principal; 2022-02-14)
DX: Z12.11 Encounter for screening for malignant neoplasm of colon (principal); E11.9 Type 2 diabetes mellitus without complications; Z79.82 Long term (current) use of aspirin; Z79.84 Long term (current) use of oral hypoglycemic drugs; Z79.899 Other long term (current) drug therapy; Z88.8 Allergy status to other drugs, medicaments and biological substances; Z95.1 Presence of aortocoronary bypass graft; Z95.810 Presence of automatic (implantable) cardiac defibrillator
CPT/HCPCS: J2704